=== PATIENT | female | born 1960 | race Caucasian/White ===

== ENCOUNTER 2018-08-11 18:00 | Emergency (ER) | payer BC, SELFPAY ==
[2018-08-11 18:06] VITALS: BP 138/78; PULSE 59; RESP 16; TEMP 36.5; O2SAT 99
--- NOTE | 2018-08-11 18:27 | DI.CT_ITS ---
SYMPTOM/DIAGNOSIS: RUQ ABD PAIN CT ABDOMEN AND PELVIS: The study was conducted according to the usual protocol with intravenous administration of 100 cc IsoVue 350. The lung bases ar unremarkable. The liver contains a benign appearing right hepatic cyst. There is no ductal dilatation and no hepatic masses seen. Significant distention of the gallbladder is demonstrated. There is a vague 22 mm density within the gallbladder rumen which may reflect a stone or sludge ball. Additional densities likely present within the gallbladder lumen are noted as well. There is no evidence of pericholecystic fluid. The common bile duct caliber is 6-7 mm. There is ill defined density in the region of the distal common duct and/or ampulla. There is mild pancreatic ductal dilatation. The spleen is unremarkable. The adrenals are unremarkable. The kidneys are unremarkable. Note is made of descending and sigmoid diverticulosis. No focal pathology is identified. There is no pathology in the small bowel. There is no evidence of obstruction or mucosal thickening. There are no findings to suggest an acute appendix. The bladder is unremarkable. The reproductive organs as visualized are unremarkable. There is no evidence of free air or free fluid in the intraperitoneal space. No acute bony abnormality is seen. The soft tissues are unremarkable. There is no aortic aneurysm. There is no lymphadenopathy. SUMMARY: Significant distention of the gallbladder and biliary tree as described above. Ill defined density in the region of the common duct and/or ampulla is demonstrated. A distal stone or ampullary mass could be considered. Further evaluation with ultrasound and if needed an MRCP could be obtained.
[2018-08-11 19:01] LABS: Bilirubin Negative (Negative); Blood Negative (Negative); Clarity Clear; Glucose Negative (Negative); Ketones Negative (Negative); Leukocyte Esterase Trace (Negative); Nitrite Negative (Negative); Specific Gravity 1.015 (1.005-1.025); Urobilinogen 0.2 EU/dL (Up TO 0.2)
[2018-08-11] MEDS: Ketorolac 30 MG/ML VIAL IVP (19:08)
[2018-08-11] MEDS: Normal Saline 1,000 ML 1000 ML IV (19:08)
[2018-08-11 19:10] LABS: Abs Immature Grans 0.01 k/cumm (0.0-0.09); Absolute Basophil Count 0.03 k/cumm (0.0-0.2); Absolute Eosinophil Count 0.17 k/cumm (0.0-0.7); Absolute Lymphocyte Count 1.65 k/cumm (1.2-3.4); Absolute Monocyte Count 0.39 k/cumm (0.11-0.7); Absolute Neutrophil Count 4.03 k/cumm (1.2-6.7); Basophils % 0.5; Eosinophils % 2.7; HCT 42.6 % (36.0-46.0); HGB 14.9 g/dL (12.0-15.5); Immature Grans % 0.2; Lymphocytes % 26.3; Mean Corpuscular Hemoglobin 32.3 pg (27.0-33.0); Mean Corpuscular Volume 92.2 fL (80-95); Mean Platelet Volume 8.6 fL (8.0-11.0); Monocytes % 6.2; Neutrophils % 64.1; Platelet Count 268 x1000/uL (130-400); RBC 4.62 m/cumm (4.00-5.20); RBC Distribution Width 12.2 % (11.7-14.6); White Blood Cell Count 6.28 k/cumm (4.4-10.8)
--- NOTE | 2018-08-11 19:12 | ED.GENADUL_ITS ---
Discharge Plan Disposition Patient Disposition: HOME Condition: Stable Discharge Details Chief Complaint: Abd Prob Clinical Impression: Acute cholecystitis Primary Care Provider: Donna Farrell ED Provider: Afshin Ochoa Home Meds and New Rx's Prescriptions: No Action citalopram 20 mg Tablet 20 mg PO DAILY RF: 0 Discharge Instructions Instructions: Cholecystitis (ED) Additional Instructions: Return immediately to the emergency department for any new or worsening symptoms. These may include severe persistent uncontrollable pain, vomiting, fever. Otherwise radiology will contact you tomorrow morning for scheduling of your outpatient ultrasound and you should call Dr. Gil's office at 8 AM for arrangement of follow-up visit with him Referrals: Cameron Piña DO [ [facility] STAFF PHYSICIAN] - (Call the office first thing tomorrow morning for arrangement of follow-up with) Medical Decision Making Patient presenting to the emergency department for chief complaint of abdominal pain. Patient states that she has had upper quadrant abdominal pain since 3 AM this morning that has gotten progressively worse. Patient states that it feels crampy and sharp in nature. Patient denies any injury or trauma, nausea vomiting diarrhea, fever, chest pain or difficulty breathing. Physical exam shows right upper quadrant tenderness and positive Cifuentes sign but some left upper quadrant tenderness is also noted. Differential diagnosis to include chief differential diagnosis could include cholecystitis versus diverticulitis so I do feel that labs and CT imaging is warranted. Less likely diagnosis include pancreatitis given patient's alcohol intake, atypical ND, renal calculi. Still plan to check lipase and troponin and CT image for renal calculi. Patient given IV fluids and ketorolac pending results. Pending results patient was reassessed and still had significant amount of pain so patient was ordered morphine. Review of labs shows no leukocytosis, normal LFTs, normal lipase normal troponin and otherwise nondiagnostic nonreversing labs. Patient reassessed and still had moderate level of pain but does not want any further pain medication due to concern about opiate use. Review of CT scan shows a moderately distended gallbladder with a 22 mm area concerning for a possible stone versus sludge. I feel that this clinically correlates with acute cholecystitis with stable labs. Patient reassessed and still has significant amount of pain and states very little relief from the previous medications. Patient was ordered hydromorphone and due to difficult to control patient's pain I do feel that patient requires admission. I did attempt to admit her to our facility which was full and had no bed availability. I also called [facility], [facility], and [facility] which none of those facilities had bed availability. Patient did not want to travel any further than these facilities for care and so she wondered if it was possible for her to come home and return. I informed her that I would consult with Dr. Gil and review her case with him before making this decision. Spoke with Dr. Gil who requested an outpatient ultrasound to be done preferably first thing tomorrow morning and for her to follow-up with her in his office tomorrow morning otherwise to provide patient with sufficient pain control to get her to her appointment tomorrow and inform patient to return immediately for any new or worsening symptoms. After discussion of diagnosis and plan of care patient states no further needs, questions, or concerns and states clear understanding to return to the emergency department for any worsening symptoms. Patient was given 4 tablets of [place] 5/325 and 4 tablets of Phenergan 25 mg. HPI General Mode of arrival: ambulatory . Date/Time Provider Initiated Documentation: 08/11/18 18:15 . Limitations to Documentation: no limitations . Information obtained by: patient and RN notes reviewed . History of Present Illness 58 year old F presents to the emergency department with the chief complaint of Abd pain, described as moderate, with intensity rated at 5. Quality is described as sharp, and is localized to the abdomen. Patient reports radiation to back. Patient started experiencing this hour(s) (16) and it has been constant. No relieving factors improve symptom(s), No exacerbating factors reported . Patient notes no other symptoms.. Patient did receive the following treatments prior to arrival, none Related Data Home Medications Medication Instructions Recorded Confirmed citalopram 20 mg PO DAILY 08/11/18 08/11/18 Allergies Allergy/AdvReac Type Severity Reaction Status Date / Time No Known Allergies Allergy Unverified 08/11/18 18:11 General Stated Complaint: Abd Prob ROCKY: 3 Review of Systems Constitutional Denies fatigue, Denies fever(s), Denies malaise and Denies poor appetite Cardiovascular Denies chest pain, Denies syncope, Denies irregular heart rhythm and Denies dyspnea Respiratory Denies cough and Denies dyspnea Gastrointestinal Reports as per HPI, Reports abdominal pain, Reports bloating, Denies change in stool character, Denies constipation, Denies diarrhea, Denies loose stools, Denies nausea and Denies vomiting Genitourinary Denies hematuria and Denies dysuria Neurologic Denies syncope Endocrine Denies fatigue [facility] Social History Smoking/Tobacco Use Status: Former Tobacco Use Exam Const General: cooperative, no acute distress and not ill appearing Orientation: alert, awake and oriented x3 HENMT Mouth: mucous membranes dry (Dry) Resp Effort & Inspection: normal respiratory effort, able to speak in complete sentences and no respiratory distress Auscultation: clear to auscultation bilaterally Cardio Rate: regular rate Rhythm: regular rhythm Heart Sounds: S1 normal, no click, no gallops, no murmurs and no rubs GI Inspection: normal to inspection Palpation: no hepatosplenomegaly, guarding in the RUQ and tender in the RUQ and Cifuentes's sign positive; not at McBurney's point, with no rebound tenderness and Rovsing's sign negative Back/Spine/Pelvis Back: no CVA tenderness Skin General skin exam: no rashes or lesions noted Neuro General: alert, awake, oriented x3, moves all extremities and no focal motor deficits Sensory Exam: no sensory deficits noted Course Vital Signs Temperature 36.5 C 08/11/18 18:06 Pulse 59 L 08/11/18 18:06 Respiratory Rate 16 08/11/18 18:06 Blood Pressure 138/78 08/11/18 18:06 Pulse Oximetry 99 08/11/18 18:06 Temperature 36.5 C 08/11/18 18:06 Temperature Source Temporal Artery Scan 08/11/18 18:06 Pulse 59 L 08/11/18 18:06 Respiratory Rate 16 08/11/18 18:06 Respiratory Effort 08/11/18 18:12 Blood Pressure 138/78 08/11/18 18:06 Blood Pressure Position Supine 08/11/18 18:06 Pulse Oximetry 99 08/11/18 18:06 Pain Level 5 08/11/18 18:06 Lab/Test Results Lab/Test Results: Laboratory Tests Range/Units 08/11/18 18:45 Urine Color (Yellow) Yellow Urine Clarity Clear Urine pH (5-8) 7.0 Ur Specific [place] (1.005-1.025) 1.015 Urine Protein (Negative) mg/dL Negative Urine Ketones (Negative) mg/dL Negative Urine Blood (Negative) Negative Urine Nitrite (Negative) Negative Urine Bilirubin (Negative) Negative Urine Urobilinogen (Up TO 0.2) EU/dL 0.2 Ur Leukocyte Esterase (Negative) Trace H Urine Glucose (Negative) mg/dL Negative
[2018-08-11 19:16] LABS: Epithelial Cells Rare HPF (Negative); RBC Negative (0-2); WBC 0-2 HPF (0-5)
[2018-08-11 19:17] LABS: Bacteria Rare HPF (Negative)
[2018-08-11 19:18] LABS: Crystals Few Amorphous HPF (Negative)
[2018-08-11 19:19] LABS: C & S Indicated? No; Casts Negative LPF (Negative); Mucus Negative (Negative); Other Cells Rare Renal (Negative)
[2018-08-11 19:32] LABS: ALT 31 U/L (12-78); AST 19 U/L (15-37); Albumin 4.3 g/dL (3.4-5.0); Alkaline Phosphatase 105 U/L (46-116); Anion Gap 7.2 mmol/L (3-11); BUN 15 mg/dL (7-18); Bilirubin, Total 0.4 mg/dL (0.2-1.0); CO2 30.8 mmol/L (21.0-32.0); CREATININE 0.81 mg/dL (0.55-1.02); Calcium 9.8 mg/dL (8.5-10.1); Chloride 104 mmol/L (98-107); Glucose 111 mg/dL (70-100); Lipase 172 U/L (73-393); Potassium 4.1 mmol/L (3.5-5.1); Sodium 142 mmol/L (136-145); Total Protein 7.6 g/dL (6.4-8.2)
[2018-08-11 19:36] LABS: Troponin I < 0.02 ng/mL (0.00-0.06)
[2018-08-11] MEDS: MORPHine 10 MG/ML VIAL 4 MG IVP (20:20)
[2018-08-11] MEDS: Omnipaque 350 MG/ML 50 ML BTL PO (20:23)
[2018-08-11] MEDS: Omnipaque 350 MG/ML 100 ML BTL IV (20:26)
--- NOTE | 2018-08-11 21:44 | DI.VRAD_ITS ---
EXAM: CT Abdomen and Pelvis With Intravenous Contrast CLINICAL HISTORY: 58 years old, female; Signs and symptoms; Other: Ruq abd pain; Additional info: Pain on upper abd since 3 am ruq the most per pt TECHNIQUE: Axial computed tomography images of the abdomen and pelvis with intravenous contrast. All CT scans at this facility use at least one of these dose optimization techniques: automated exposure control; mA and/or kV adjustment per patient size (includes targeted exams where dose is matched to clinical indication); or iterative reconstruction. Coronal and sagittal reformatted images were created and reviewed. CONTRAST: 100 mL of omnipaque 350 administered intravenously. COMPARISON: No relevant prior studies available. FINDINGS: Lung bases: No focal pathology. No mass. No consolidation. ABDOMEN: Liver: No hepatic masses. Benign-appearing right hepatic cyst. Intrahepatic ductal dilation, mild. Gallbladder and bile ducts: Significant distention of the gallbladder. Vague 22 mm density within the gallbladder lumen may reflect a stone or sludge ball. Additional densities likely present within the gallbladder lumen. No significant pericholecystic edema. The common bile duct is dilated to 6-7 mm there is ill-defined density in the region of the distal common bile duct and/or ampulla. Pancreas: Mild pancreatic ductal dilation. Spleen: No focal pathology. No splenomegaly. Adrenals: No focal pathology. No mass. Kidneys and ureters: No focal pathology. No solid mass. No hydronephrosis. Stomach and bowel: Descending and sigmoid diverticulosis. No focal pathology in the remainder of the colon. No focal pathology in the small bowel. No obstruction. No mucosal thickening. PELVIS: Appendix: No findings to suggest acute appendicitis. Bladder: No focal pathology. No mass. Reproductive: Unremarkable as visualized. ABDOMEN and PELVIS: Intraperitoneal space: No free air. No significant fluid collection. Bones/joints: No acute fracture. No dislocation. Soft tissues: Unremarkable. Vasculature: No focal pathology. No abdominal aortic aneurysm. Lymph nodes: No enlarged lymph nodes. IMPRESSION: 1. Significant distention of the gallbladder and biliary tree as described. Ill-defined density in the region of the distal common bile duct and/or ampulla. A distal stone or ampullary mass must be considered. Consider further investigation with MRCP or ultrasound. 2. Incidental findings as described. Dictated and Authenticated by: Angelika Koo MD. Ordering:MARIN MERRITT MD
[2018-08-11] MEDS: Normal Saline 1,000 ML 200 ML IV (21:50)
[2018-08-11] MEDS: HYDROmorphone 2 MG/ML VIAL 0.5 MG IVP (21:54)
[2018-08-11] MEDS: HYDROcodone 5/Acetaminophen 325 TAB PO (23:51)
[2018-08-11] MEDS: Promethazine 25 MG TAB 100 MG PO (23:52)
[2018-08-11 23:55] VITALS: BP 121/77; PULSE 66; RESP 16; TEMP 36.6; O2SAT 97
== END 2018-08-11 23:55 | disposition home or self-care (01) ==
PROVIDERS: Emergency Provider Nurse Practitioner Family; PCP Family Medicine
DX: K81.0 Acute cholecystitis (principal)
CPT/HCPCS: 80053; 83690; 93005; 96361; 96374; 96375; 99285; 74177; 81003; 81015; 84484; 85025; 93010; 99284; J1885; J2270; J3490; Q9967

== ENCOUNTER 2018-08-12 12:08 | Outpatient (CLI) | payer BC, SELFPAY ==
--- NOTE | 2018-08-12 08:21 | DI.US_ITS ---
SYMPTOM/DIAGNOSIS: RUQ PAIN ABDOMINAL ULTRASOUND: The aorta and vena cava are intact. A 9 mm cyst is noted in the right hepatic lobe adjacent to the right kidney. There is a 2.1 cm stone in the gallbladder neck and a 2.7 cm stone is noted in the body of the gallbladder. The gallbladder is distended measuring up to 10 to 11 cm in length. The gallbladder wall thickness is 2.6 mm. The pancreas is intact with note made of mild dilatation of the main pancreatic duct. The spleen is unremarkable. The kidneys are unremarkable. There is no evidence of abdominal free fluid. SUMMARY: There is evidence of gallbladder distention and gallstones one of which measures up to 2.1 cm in diameter and appears to be impacted in the region of the gallbladder neck. Also the common duct caliber is 7-8 mm which is mildly dilated. No common duct stone is seen.
== END 2018-08-12 12:28 ==
PROVIDERS: PCP Family Medicine; Visit Provider Nurse Practitioner Family
DX: R10.11 Right upper quadrant pain (principal); K80.20 Calculus of gallbladder without cholecystitis without obstruction; K82.8 Other specified diseases of gallbladder; K76.89 Other specified diseases of liver
CPT/HCPCS: 76700

== ENCOUNTER 2018-08-13 17:07 | Observation (INO) | payer BC, SELFPAY ==
[2018-08-13] VITALS (18 sets, daily range): BP systolic 93–131; BP diastolic 55–76; PULSE 57–77; RESP 13–19; TEMP 35.2–37.9; O2SAT 93–99
--- NOTE | 2018-08-13 07:03 | W.PM.DSUDISC ---
Discharge Plan Disposition Patient Disposition: HOME Condition: Fair Discharge Details Reason For Visit: BILIARY COLIC, chronic cholecystitis Attending Provider: Debbie Alvarenga Primary Care Provider: Donna Farrell Home Meds and New Rx's Prescriptions: No Action hydrocodone-acetaminophen [[place]] 5-325 mg tablet 1 tab PO Q4H PRN (Reason: pain) Qty: 15 RF: 0 citalopram 20 mg Tablet 20 mg PO HS RF: 0 calcium carb and citrate-vitD3 [Citracal + D Slow Release] 600 mg calcium- 500 unit Tablet Extended Release 1 tab PO DAILY RF: 0 ibuprofen 200 mg Tablet 400 mg PO QID PRNRF: 0 Discharge Instructions Instructions: Laparoscopic Cholecystectomy (DC) Additional Instructions: General Surgery Discharge Information Discharge Activities: 1. Ambulate at least 3 times a day for 15 minutes and as tolerated 2. Out of bed at least 3 times a day for 2 hours at a time, and as tolerated 3. You can shower, pat wounds dry, do not rub Restrictions: 1. No heavy lifting over 20 pounds for 2 weeks, no strenuous bending or twisting. 2. No swimming, baths, or immersion of wounds in water for 1 week. Follow-up appointments: Dr. Alvarenga in 2 weeks on 09/01/18 at 1 pm. His office is located in the upper level of the [facility] across the street from the [facility] [address]. The office number is [phone]. For any questions or to make, confirm appointments. If you are having fever, chills, nausea, vomiting, pain not controlled with pain medications, bleeding or drainage from your wounds. Call [phone] or [phone] (after hours) 1. Because there will be medication in your system for the next 24 hours, you may feel a little sleepy. Your coordination will be affected. Therefore: a. Do not drive or operate dangerous equipment for 24 hours. b. Do not drink alcohol beverages for 24 hours (not even beer). c. Plan to go home and rest for the day. 2. Generally the only restriction on your activity is no lifting, pulling or pushing more then 20 lb for 4 weeks. You may feel fatigued for 2-4 weeks. 3 After you arrive home you may have a light meal and return to a normal diet as you can tolerate it without feeling sick to your stomach. 4. After surgery, you may feel pain or discomfort. Take the medications as prescribed. 5. If there are any questions regarding the findings of your procedure, please feel free to contact your doctor. 6. If you are unable to contact your doctor with a problem, contact the hospital at [phone]. 7. Continue all your regular medications unless directed otherwise. 8. If you are being prescribed a Narcotic pain medication. Narcotic pain medications have an addiction potential for everyone. It is important that you take the medication as prescribed There is a limit on how many tablets we can prescribed, this has been decided by the state Please keep the medications in a secure place and do not let anyone know you have them at home If you have medication left over please discard them by crushing them in a little water and mixing in used coffee grounds or cat litter and putting in the trash. I understand the above instructions and have no questions. Signature of Patient or Responsible Adult Escort Date/Time Name of Responsible Adult Escort Signature of Nurse Date/Time Stand Alone Forms: Kayleigh Pepper (DSU) Print Language: Stateless Activity:: no lifting, pulling,or or pushing >20 lb x 2 weeks Diet:: low fat Discharge Orders Discharge Orders: Discharge Order (Routine); Ordered 08/13/18 Ordered By: Debbie Alvarenga
--- NOTE | 2018-08-13 07:07 | PDOC.DSDIS_ITS ---
Discharge Plan Disposition Patient Disposition: HOME Condition: Fair Discharge Details Reason For Visit: BILIARY COLIC, chronic cholecystitis Attending Provider: Debbie Alvarenga Primary Care Provider: Donna Farrell Home Meds and New Rx's Prescriptions: No Action hydrocodone-acetaminophen [[place]] 5-325 mg tablet 1 tab PO Q4H PRN (Reason: pain) Qty: 15 RF: 0 citalopram 20 mg Tablet 20 mg PO HS RF: 0 calcium carb and citrate-vitD3 [Citracal + D Slow Release] 600 mg calcium- 500 unit Tablet Extended Release 1 tab PO DAILY RF: 0 ibuprofen 200 mg Tablet 400 mg PO QID PRNRF: 0 Discharge Instructions Instructions: Laparoscopic Cholecystectomy (DC) Additional Instructions: General Surgery Discharge Information Discharge Activities: 1. Ambulate at least 3 times a day for 15 minutes and as tolerated 2. Out of bed at least 3 times a day for 2 hours at a time, and as tolerated 3. You can shower, pat wounds dry, do not rub Restrictions: 1. No heavy lifting over 20 pounds for 2 weeks, no strenuous bending or twisting. 2. No swimming, baths, or immersion of wounds in water for 1 week. Follow-up appointments: Dr. Alvarenga in 2 weeks on 09/01/18 at 1 pm. His office is located in the upper level of the [facility] across the street from the [facility]. The office number is [phone]. For any questions or to make, confirm appointments. If you are having fever, chills, nausea, vomiting, pain not controlled with pain medications, bleeding or drainage from your wounds. Call [phone] or [phone] (after hours) 1. Because there will be medication in your system for the next 24 hours, you may feel a little sleepy. Your coordination will be affected. Therefore: a. Do not drive or operate dangerous equipment for 24 hours. b. Do not drink alcohol beverages for 24 hours (not even beer). c. Plan to go home and rest for the day. 2. Generally the only restriction on your activity is no lifting, pulling or pushing more then 20 lb for 4 weeks. You may feel fatigued for 2-4 weeks. 3 After you arrive home you may have a light meal and return to a normal diet as you can tolerate it without feeling sick to your stomach. 4. After surgery, you may feel pain or discomfort. Take the medications as prescribed. 5. If there are any questions regarding the findings of your procedure, please feel free to contact your doctor. 6. If you are unable to contact your doctor with a problem, contact the hospital at [phone]. 7. Continue all your regular medications unless directed otherwise. 8. If you are being prescribed a Narcotic pain medication. Narcotic pain medications have an addiction potential for everyone. It is important that you take the medication as prescribed There is a limit on how many tablets we can prescribed, this has been decided by the state Please keep the medications in a secure place and do not let anyone know you have them at home If you have medication left over please discard them by crushing them in a little water and mixing in used coffee grounds or cat litter and putting in the trash. I understand the above instructions and have no questions. Signature of Patient or Responsible Adult Escort Date/Time Name of Responsible Adult Escort Signature of Nurse Date/Time Stand Alone Forms: Kayleigh Pepper (DSU) Print Language: Canadian Activity:: no lifting, pulling,or or pushing >20 lb x 2 weeks Diet:: low fat Discharge Orders Discharge Orders: Discharge Order (Routine); Ordered 08/13/18 Ordered By: Debbie Alvarenga
[2018-08-13] MEDS: Lactated Ringers 1,000 ML 30 ML IV ×3 (08:42→15:01)
[2018-08-13] MEDS: Lidocaine 1% Pres-Free 5 ML VIAL 20 ML (10:40)
--- NOTE | 2018-08-13 11:50 | GB_PTH ---
PATIENT: Elvia Rodriguez LOC: U#:[id number] AGE/SX: 58/F ROOM: [id number] RE08/13/[address]: Debbie Alvarenga MD : 1960 BED: A DIS: 08/14/2018 SPEC #: [id number] RECD: 08/13/18 13:08 STATUS: SHMUEL REQ #: [id number] MARC: 08/13/18 11:[address]: Debbie Alvarenga DEPT: Surgical Specimen RECD BY: Janet Camarena ENTERED: 08/13/18 13:09 SP TYPE: GB OTHR DR: Donna Farrell Tissues: 1 - GALLBLADDER Procedures: GROSS AND MICRO LEVEL 3 Comments: [id number]
[2018-08-13] MEDS: fentaNYL 100 MCG/2 ML VIAL IVP ×2 (13:04→13:11)
[2018-08-13] MEDS: HYDROmorphone 2 MG/ML VIAL IVP (13:22)
[2018-08-13] MEDS: Normal Saline Flush 10 ML SYR IVP ×2 (15:05→16:41)
[2018-08-13] MEDS: HYDROcodone 5/Acetaminophen 325 TAB PO (15:15)
--- NOTE | 2018-08-13 16:01 | NUR.NOTE ---
Nursing Note: 08/13/18@1415-Admited from PACU to room 205 via stretcher. A&Ox3. LS cl Enc to take deep breaths and cough. BS hypo. Skin is pale w 4 trochars on ABD which are glued w bruising noted. All trochars are [employer]. ABD is soft and sl tender w turning. Denies nausea. Patient has not voided postop. PP+ no edema noted. SCD's intact to LE. Bed alarm placed on. IV LR in site WNL's. See intervention. Sipping on gingerale. States a tiny bit of 1/10 pain. Enc to ring if needs pain meds. Bed alarm placed on for safety. Upper bed rails in use. Oriented to room and call doyle derrick. Spouse present and attentive. MD Alvarenga in to see patient at this time. See VS intervention.
[2018-08-13] MEDS: Pantoprazole 40 MG VIAL IVP (16:39)
--- NOTE | 2018-08-13 19:37 | ROE_ITS ---
DATE OF PROCEDURE: August 13, 2018 PREOPERATIVE DIAGNOSIS: Biliary colic. POSTOPERATIVE DIAGNOSIS: #1. Biliary colic. #2. Chronic cholecystitis. PROCEDURE: Laparoscopic cholecystectomy. SURGEON: Debbie Alvarenga M.D. TRAFFIC OBSERVER: Irlanda Grover PA-C ANESTHESIA: General endotracheal anesthesia. HEALTH AND HUMAN PERFORMANCE PROFESSOR: Robert Maravilla, and Ashish Neumann CRNA BLOOD LOSS: <50 cc SPECIMENS: Gallbladder and contents. Sponge, needle, and instrument counts correct at the end of the case. COMPLICATIONS: No immediate complications. INDICATIONS: Ms. Domingo is a 58-year-old female who has had one-and-off right upper quadra nt pain for eight years. She had a pretty significant episode a couple of days ago and was seen in t office by Dr. Piña. The risks, benefits, and complications of the procedure were reviewed with her in the office and then again by myself in Same Day Surgery. The patient wished to proceed and no guarantees were given or implied. FINDINGS: Two large stones within a very dilated gallbladder. There was a thickened wall and white bile. Also noted were adhesions between the liver and the abdominal wall and omentum and the abdomin al wall. PROCEDURE: After informed consent was obtained, the patient was taken to the Operating Room and plac ed in a supine position. SCDs and monitors were applied. The patient was placed under general anest hesia and intubated. A Liriano catheter was then placed in a standard sterile fashion and a time-out w as done. The patient's name, date of , procedure type, allergies to medications, DVT prophylaxi s, and antibiotic prophylaxis were all reviewed. The abdomen was then prepped and draped in a steril e surgical fashion. Next, 1% lidocaine mixed with 0.5% Marcaine was injected just above the umbilicu s. A small 5-mm incision was made. The skin was grasped with towel clamps and pulled up while, at t he same time, placing a 5-mm Visiport under direct visualization into the abdomen. The abdomen was t hen insufflated. The camera was placed and right away a large amount of adhesions were noted between the omentum and the abdominal wall, not only in the pelvis but also in the right upper quadrant and left upper quadrant. The left lobe of the liver was noted to be completely adhered to the abdominal wall. I could see the spleen very clearly. Using the camera, some of the scutcher tender adhesions were swept, allowing me to place another 5-mm port ju st to the right of the umbilicus. Using a harmonic scalpel, the adhesions were gently dissected away from the abdominal wall until I was able to see the liver. Another 5-mm port was then placed in the right upper quadrant and a 12-mm port was placed in a subxiphoid area, all under direct visualizatio n. The gallbladder was then identified which was thickened and dilated. I could not grasp it so using a laparoscopic needle white bile was suctioned out of the gallbladder until it collapsed. The gallbla dder was then grasped and pulled towards the right. A 5-mm tenaculum was then used to grasp the ston e and gallbladder in order to pull this towards the right, allowing me to visualize the lymph node of [place]. The stomach and duodenum were gently swept away from the gallbladder, breaking some fine adh esions. Dissection with a [place] was then done right at the neck of the gallbladder around the cys tic duct and three clips were placed, one proximal and two distal, just distal to the neck of the gal lbladder, and the duct was severed. The cystic artery was then identified running just next to the l ymph node and once dissected 360 degrees, three clips were placed, one proximal and two distal, and t he area was cut. Gently the rest of the adhesions were taken down, first using the harmonic scalpel, and then the hook and cautery were used to remove the gallbladder from the liver bed. There was a w all of inflammation between the gallbladder and the liver. Once the gallbladder was removed from the liver bed, it was placed into a laparoscopic bag and pulled up through the 12-mm incision which did have to be made larger with an 11 blade. Once the gallbladder was out, the 12-mm port was placed back in and the skin was grasped with a towel clip to allow for re-insufflation of the abdomen. The liver bed was inspected and the area was irri gated. Blood from the dissection of the adhesions was suctioned out until the effluent was clear whi ch took about a liter and a half of saline. No bleeding was noted from the liver bed. No bleeding w as noted from the artery. No bile leak was identified. At this point, there was bleeding coming rick n from the fascia where the 12-mm port was going through so the port was removed and the fascia was c losed with a #0 Vicryl. This stopped the bleeding from the fascia itself. Some more irrigation was used to make sure that there was not any other bleeding and none was found. Again, at the end of the suction, the effluent was clear. The right upper quadrant port and the umbilical port were then rem wil under direct visualization and no bleeding was noted from the fascia. Lastly, the camera and th e last 5-mm port were removed and the abdomen was deflated. The skin was cleaned and dried and the incisions were closed with #4-0 Vicryl. Skin Affix was then a pplied to all four incisions. The patient's Liriano catheter was removed. She was then woken up, extu bated, and taken back to Recovery in stable condition. Due to the difficulty of the case with all of the adhesions and some more pain than I expected after she woke up, I elected to admit the patient for observation, just to make that she would be okay, was able to tolerate liquids, and that we could get her pain under control.
[2018-08-13] MEDS: Docusate Sodium 100 MG CAP PO (21:05)
[2018-08-13] MEDS: Ibuprofen 200 MG TAB 400 MG PO (21:06)
[2018-08-13] MEDS: Citalopram 20 MG TAB PO (21:06)
[2018-08-13] MEDS: Acetaminophen 325 MG TAB PO (22:30)
[2018-08-14 04:05] VITALS: BP 115/66; PULSE 66; RESP 18; TEMP 37.6; O2SAT 95
[2018-08-14 04:14] VITALS: TEMP 37.6
[2018-08-14] MEDS: Acetaminophen 325 MG TAB PO (04:14)
[2018-08-14 07:09] LABS: Abs Immature Grans 0.01 k/cumm (0.0-0.09); Absolute Basophil Count 0.01 k/cumm (0.0-0.2); Absolute Eosinophil Count 0.05 k/cumm (0.0-0.7); Absolute Lymphocyte Count 1.63 k/cumm (1.2-3.4); Absolute Neutrophil Count 3.66 k/cumm (1.2-6.7); Basophils % 0.2; Eosinophils % 0.8; HCT 35.5 % (36.0-46.0); HGB 12.2 g/dL (12.0-15.5); Immature Grans % 0.2; Lymphocytes % 27.3; Mean Corp. HGB Concentration 34.4 g/dL (32.0-36.0); Mean Corpuscular Hemoglobin 32.3 pg (27.0-33.0); Mean Corpuscular Volume 93.9 fL (80-95); Mean Platelet Volume 8.9 fL (8.0-11.0); Monocytes % 10.1; Neutrophils % 61.4; Platelet Count 219 x1000/uL (130-400); RBC 3.78 m/cumm (4.00-5.20); RBC Distribution Width 12.2 % (11.7-14.6); White Blood Cell Count 5.96 k/cumm (4.4-10.8)
[2018-08-14 07:18] LABS: Anion Gap 5.3 mmol/L (3-11); BUN 9 mg/dL (7-18); CO2 28.7 mmol/L (21.0-32.0); CREATININE 0.86 mg/dL (0.55-1.02); Calcium 8.2 mg/dL (8.5-10.1); Chloride 107 mmol/L (98-107); Glucose 106 mg/dL (70-100); Potassium 3.3 mmol/L (3.5-5.1); Sodium 141 mmol/L (136-145)
[2018-08-14 07:20] VITALS: O2SAT 96
[2018-08-14 07:25] VITALS: BP 111/71; PULSE 58; RESP 16; TEMP 37.4; O2SAT 96
[2018-08-14] MEDS: Docusate Sodium 100 MG CAP PO (07:42)
--- NOTE | 2018-08-14 08:34 | PDOC.CMIN ---
Care Management Initial Assess REASON FOR HOSPITALIZATION:: Biliary Colic, chronic cholecystitis, Laparoscopic cholecystectomy PAST MEDICAL HISTORY/PAST SURGICAL HISTORY:: Laparoscopic cholescystectomy: 08/13/18, Depression with anxiety, osteopenia after menopause, H/O colonoscopy, delivery, former tobacco use PREVIOUS FUNCTIONAL STATUS/SOCIAL/FAMILY SUPPORTS:: Elvia resides in [place], [place] with her and teenage daughter. Elvia is not currently working, as the family relocated two years ago and she has not yet returned to the workforce. She transports her daughter to and from [facility] everyday. Her is a Agency Cashier who commutes to [place] for work. 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 She shared that she spent her honeymoon at [facility] in [place] and her and her fell in love with the area and had always wanted to move to [place]. CURRENT FUNCTIONAL STATUS:: Elvia is lying in bed when meets with her, she anticipates returning home today and reports feeling ready. Elvia is pleasant in interaction and forthcoming with information. ADVANCE DIRECTIVES:: None on file. Has patient been provided with information about the portal?: Yes Did the patient sign up for the portal?: No CODE STATUS:: Full Code INSURANCE COVERAGE / FINANCIAL ISSUES:: BC/BS Other CURRENT HOME/COMMUNITY SERVICES/EQUIPMENT:: Review discharge instructions, discuss Ask Me Three. PRIMARY CARE PHYSICIAN:: Donna Farrell POTENTIAL DISCHARGE NEEDS:: Follow up appointment with PCP. PATIENT/FAMILY EDUCATION NEEDS:: Review discharge instructions, discuss Ask Me Three. ANTICIPATED BARRIERS TO DISCHARGE:: None identifed. TRANSPORTATION:: Via private vehicle with her . PLAN:: Elvia will return home when ready per MD. She will follow up with her PCP and plan of care as prescribed. She will transport via private vehicle with her .
--- NOTE | 2018-08-14 09:37 | DSE_ITS ---
Date of service: 08/14/18 Time of Service: 09:35 DS: Diagnosis Discharge Diagnosis (1) Biliary colic: Status: Acute (2) Chronic cholecystitis: Status: Chronic Discharge Plan Disposition Patient Disposition: HOME Condition: Good Discharge Details Reason For Visit: BILIARY COLIC, chronic cholecystitis Admit Date/Time: 08/13/18 17:36 Admit Provider: Debbie Alvarenga Attending Provider: Debbie Alvarenga Primary Care Provider: Donna Farrell [facility] Course Hospital Course: Mrs. Agee had laproscopic cholecystectomy on 08/13/18, the procedure was difficult case secondary to adhesions and following the procedure the patient had more pain then expected. She was admitted to Med-Surg for observation due to increased pain levels and to confirm that she could tolerate a clear liquid diet. The patient tolerated clear liquids well and pain was managed over night with use of Tylenol and ambulation. Home Meds and New Rx's Prescriptions: Continue hydrocodone-acetaminophen [[place]] 5-325 mg tablet 1 tab PO Q4H PRN (Reason: pain) Qty: 15 RF: 0 citalopram 20 mg Tablet 20 mg PO HS RF: 0 calcium carb and citrate-vitD3 [Citracal + D Slow Release] 600 mg calcium- 500 unit Tablet Extended Release 1 tab PO DAILY RF: 0 ibuprofen 200 mg Tablet 400 mg PO QID PRNRF: 0 Discharge Instructions Instructions: Laparoscopic Cholecystectomy (DC) Additional Instructions: General Surgery Discharge Information Discharge Activities: 1. Ambulate at least 3 times a day for 15 minutes and as tolerated 2. Out of bed at least 3 times a day for 2 hours at a time, and as tolerated 3. You can shower, pat wounds dry, do not rub Restrictions: 1. No heavy lifting over 20 pounds for 2 weeks, no strenuous bending or twisting. 2. No swimming, baths, or immersion of wounds in water for 1 week. Follow-up appointments: Dr. Alvarenga in 2 weeks on 09/01/18 at 1 pm. His office is located in the upper level of the [employer] Building across the street from the [facility]. The office number is [phone]. For any questions or to make, confirm appointments. If you are having fever, chills, nausea, vomiting, pain not controlled with pain medications, bleeding or drainage from your wounds. Call [phone] or [phone] (after hours) 1. Because there will be medication in your system for the next 24 hours, you may feel a little sleepy. Your coordination will be affected. Therefore: a. Do not drive or operate dangerous equipment for 24 hours. b. Do not drink alcohol beverages for 24 hours (not even beer). c. Plan to go home and rest for the day. 2. Generally the only restriction on your activity is no lifting, pulling or pushing more then 20 lb for 4 weeks. You may feel fatigued for 2-4 weeks. 3 After you arrive home you may have a light meal and return to a normal diet as you can tolerate it without feeling sick to your stomach. 4. After surgery, you may feel pain or discomfort. Take the medications as prescribed. 5. If there are any questions regarding the findings of your procedure, please feel free to contact your doctor. 6. If you are unable to contact your doctor with a problem, contact the hospital at [phone]. 7. Continue all your regular medications unless directed otherwise. 8. If you are being prescribed a Narcotic pain medication. Narcotic pain medications have an addiction potential for everyone. It is important that you take the medication as prescribed There is a limit on how many tablets we can prescribed, this has been decided by the state Please keep the medications in a secure place and do not let anyone know you have them at home If you have medication left over please discard them by crushing them in a little water and mixing in used coffee grounds or cat litter and putting in the trash. I understand the above instructions and have no questions. Signature of Patient or Responsible Adult Escort Date/Time Name of Responsible Adult Escort Signature of Nurse Date/Time Stand Alone Forms: Kayleigh Pepper (DAMIÁNU) Print Language: [place] Activity:: Activity as Tolerated Equipment/Supplies:: No Equipment Needed Diet:: low fat DS: Summary Status at Discharge Functional status at discharge: independent ambulation Overall status at discharge: patient is progressing back to baseline Time Spent with Patient Less than 30 minutes Exam Const General: cooperative, healthy appearing and no acute distress Resp Effort & Inspection: normal respiratory effort Auscultation: clear to auscultation bilaterally and no wheezes Cardio Rate: regular rate Rhythm: regular rhythm Heart Sounds: S1 normal, S2 normal and no murmurs GI Inspection: normal to inspection and incision (4 incision sites; skinafix covering all incision sites. No erythema or discharge. ) Palpation: soft, no guarding and nontender Auscultation: normal bowel sounds DS: Data Vitals/I&O Vitals and I&O: Vital Signs Temperature 37.4 C 08/14/18 07:25 Temperature Source Tympanic 08/14/18 07:25 Pulse 58 L 08/14/18 07:25 Pulse Rhythm Regular 08/14/18 07:35 Respiratory Rate 16 08/14/18 07:25 Respiratory Effort Non-Labored 08/14/18 07:35 Respiratory Depth Normal 08/14/18 07:35 Respiratory Pattern Normal 08/14/18 07:35 Blood Pressure 111/71 08/14/18 07:25 Pulse Oximetry 96 08/14/18 07:25 Respiratory End-tidal CO2 41 08/13/18 14:03 Oxygen Delivery Method Room Air 08/14/18 07:25 Oxygen Flow Rate 0 08/14/18 07:25 Pain Level 2 08/14/18 04:05 Comment 08/14/18 04:05 Intake & Output 08/13/18 08/13/18 08/14/18 11:59 23:59 11:59 Intake Total 100 / 100 1773.5 / 1773.5 851 / 851 Output Total 1620 / 1620 500 / 500 Balance 100 / 100 153.5 / 153.5 351 / 351 Weight 59.8 kg Intake: IV 100 / 100 1053.5 / 1053.5 501 / 501 Oral 720 / 720 350 / 350 Output: Urine 1600 / 1600 500 / 500 Estimated Blood Loss Other: Urine Color Pale Yellow Yellow Urine Appearance Clear Clear Clear Urine Odor None Emesis Description None Voiding Methods Toilet Pending studies at discharge: WBC 5.96 k/cumm (4.4-10.8) 08/14/18 06:17 RBC 3.78 m/cumm (4.00-5.20) L 08/14/18 06:17 Hgb 12.2 g/dL (12.0-15.5) D 08/14/18 06:17 Hct 35.5 % (36.0-46.0) L 08/14/18 06:17 MCV 93.9 fL (80-95) 08/14/18 06:17 MCH 32.3 pg (27.0-33.0) 08/14/18 06:17 MCHC 34.4 g/dL (32.0-36.0) 08/14/18 06:17 RDW 12.2 % (11.7-14.6) 08/14/18 06:17 Plt Count 219 x1000/uL (130-400) 08/14/18 06:17 MPV 8.9 fL (8.0-11.0) 08/14/18 06:17 Immature Gran % 0.2 08/14/18 06:17 Neutrophils % 61.4 08/14/18 06:17 Lymphocytes % 27.3 08/14/18 06:17 Monocytes % 10.1 08/14/18 06:17 Eosinophils % 0.8 08/14/18 06:17 Basophils % 0.2 08/14/18 06:17 Absolute Neutrophils 3.66 k/cumm (1.2-6.7) 08/14/18 06:17 Absolute Lymphocytes 1.63 k/cumm (1.2-3.4) 08/14/18 06:17 Absolute Monocytes 0.60 k/cumm (0.11-0.7) 08/14/18 06:17 Absolute Eosinophils 0.05 k/cumm (0.0-0.7) 08/14/18 06:17 Absolute Basophils 0.01 k/cumm (0.0-0.2) 08/14/18 06:17 Sodium 141 mmol/L (136-145) 08/14/18 06:17 Potassium 3.3 mmol/L (3.5-5.1) L 08/14/18 06:17 Chloride 107 mmol/L (98-107) 08/14/18 06:17 Carbon Dioxide 28.7 mmol/L (21.0-32.0) 08/14/18 06:17 Anion Gap 5.3 mmol/L (3-11) 08/14/18 06:17 BUN 9 mg/dL (7-18) D 08/14/18 06:17 Creatinine 0.86 mg/dL (0.55-1.02) 08/14/18 06:17 Estimated GFR/1.73 m2 >= 60.00 (mL/min/1.73m2) 08/14/18 06:17 Glucose 106 mg/dL (70-100) H 08/14/18 06:17 Calcium 8.2 mg/dL (8.5-10.1) L 08/14/18 06:17 08/13/18 11:54 Gallbladder - Bile Surgical Culture - Pending 08/13/18 11:54 Gallbladder - Bile Anaerobic Culture - Pending Labs on day of discharge: Labs from last 24 hours 08/14/18 08/14/18 06:17 06:17 WBC 5.96 RBC 3.78 L Hgb 12.2 D Hct 35.5 L MCV 93.9 MCH 32.3 MCHC 34.4 RDW 12.2 Plt Count 219 MPV 8.9 Immature Gran % 0.2 Neutrophils % 61.4 Lymphocytes % 27.3 Monocytes % 10.1 Eosinophils % 0.8 Basophils % 0.2 Absolute Neutrophils 3.66 Absolute Lymphocytes 1.63 Absolute Monocytes 0.60 Absolute Eosinophils 0.05 Absolute Basophils 0.01 Sodium 141 Potassium 3.3 L Chloride 107 Carbon Dioxide 28.7 Anion Gap 5.3 BUN 9 D Creatinine 0.86 Estimated GFR/1.73 m2 >= 60.00 Glucose 106 H Calcium 8.2 L Preliminary micro results at discharge 08/13/18 11:54 Surgical Culture - Pending Gallbladder - Bile 08/13/18 11:54 Anaerobic Culture - Pending Gallbladder - Bile
--- NOTE | 2018-08-14 10:25 | PHARADMIT ---
Admission Pharmacy Clinical Review BILIARY COLIC, Chronic cholcystitis Code Status Full Code Current Weight Wgt-59.8 kg Renally Cleared and Narrow Therapeutic Index Meds CrCl~ 58.9mL/min Meds-OK QTc Value / Action Taken BP Control, Fever Electrolytes reviewed Na-141 K+3.3 DVT Prophylaxis Opiate Usage / Scheduled Bowel Regimen Ordered Plt/SCr for Heparin / Enoxaparin Plts- 219 SCr- 0.86 INR for Warfarin inr-NA H/H stable, WBC/Bands H&H- 12.2/35.5 WBC- 5.96 Antibiotic appropriateness Cultures and Sensitivities Surgical ABX d/c within 24 hr DM control / Insulin Dosing BG-106 Heart Failure (Check EF%) (LAURA's, B-Block, Diuretics) IV to PO Switch Home Meds Reviewed Home Meds Not Ordered Comments
[2018-08-14 11:10] VITALS: BP 121/75; PULSE 60; RESP 18; TEMP 36.8; O2SAT 97
--- NOTE | 2018-08-14 11:20 | INITIAL_ITS ---
Care Management Initial Assess REASON FOR HOSPITALIZATION:: Biliary Colic, chronic cholecystitis, Laparoscopic cholecystectomy PAST MEDICAL HISTORY/PAST SURGICAL HISTORY:: Laparoscopic cholescystectomy: 08/13, Depression with anxiety, osteopenia after menopause, H/O colonoscopy, delivery, former tobacco use PREVIOUS FUNCTIONAL STATUS/SOCIAL/FAMILY SUPPORTS:: Elvia resides in [place], [place] with her and teenage daughter. Elvia is not currently working, as the family relocated two years ago and she has not yet returned to the workforce. She transports her daughter to and from [facility] everyday. Her is a Banquet Food Server who commutes to [place] for work. 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 She shared that she spent her honeymoon at [facility] in [place] and her and her fell in love with the area and had always wanted to move to [place]. CURRENT FUNCTIONAL STATUS:: Elvia is lying in bed when meets with her, she anticipates returning home today and reports feeling ready. Elvia is pleasant in interaction and forthcoming with information. ADVANCE DIRECTIVES:: None on file. Has patient been provided with information about the portal?: Yes Did the patient sign up for the portal?: No CODE STATUS:: Full Code INSURANCE COVERAGE / FINANCIAL ISSUES:: BC/BS Other CURRENT HOME/COMMUNITY SERVICES/EQUIPMENT:: Review discharge instructions, discuss Ask Me Three. PRIMARY CARE PHYSICIAN:: Donna Farrell POTENTIAL DISCHARGE NEEDS:: Follow up appointment with PCP. PATIENT/FAMILY EDUCATION NEEDS:: Review discharge instructions, discuss Ask Me Three. ANTICIPATED BARRIERS TO DISCHARGE:: None identifed. TRANSPORTATION:: Via private vehicle with her . PLAN:: Elvia will return home when ready per MD. She will follow up with her PCP and plan of care as prescribed. She will transport via private vehicle with her .
--- NOTE | 2018-08-14 11:20 | PDOC.CMDIS ---
LACE Index Scoring Tool - Questions: Length of Stay (in days): 2 Acuity (Admit via E.D.?): Yes E.D. Visits: 1 - Answers: Total Score: 6 Risk of Readmission: Low Risk Care Management Discharge Reason for Hospitalization: Biliary Colic, chronic cholecystitis, Laparoscopic cholecystectomy Discharge Plan: Elvia will return home when ready per MD. She will follow up with her PCP and plan of care as prescribed. She will transport via private vehicle with her . Patient/Family Education Needs: Review discharge instructions, discuss Ask Me Three.
== END 2018-08-14 11:32 | disposition home or self-care (01) ==
LOC: SUR 08-17 16:06 → MS 08-17 16:07
PROVIDERS: Admitting Provider Surgery; PCP Family Medicine; Visit Provider Surgery
PROC: 0FT44ZZ Resection of Gallbladder, Percutaneous Endoscopic Approach (ICD-10-PCS; CPT 47562; principal; 2018-08-13 10:00)
DX: K81.2 Acute cholecystitis with chronic cholecystitis (principal)
CPT/HCPCS: 47562; 36415; 80048; 99217; 85025; 87070; 87075; 87205; 88304; G0378; J0131; J1100; J1885; J2250; J2405; J3010

== ENCOUNTER 2019-02-15 12:43 | Outpatient (REF) | payer BC, SELFPAY ==
[2019-02-15 13:09] LABS: HCT 42.1 % (36.0-46.0); HGB 14.1 g/dL (12.0-15.5); Mean Corp. HGB Concentration 33.5 g/dL (32.0-36.0); Mean Corpuscular Hemoglobin 31.4 pg (27.0-33.0); Mean Corpuscular Volume 93.8 fL (80-95); Mean Platelet Volume 8.9 fL (8.0-11.0); Platelet Count 281 x1000/uL (130-400); RBC 4.49 m/cumm (4.00-5.20); RBC Distribution Width 13.3 % (11.7-14.6); White Blood Cell Count 3.66 k/cumm (4.4-10.8)
[2019-02-15 13:25] LABS: ALT 25 U/L (12-78); AST 14 U/L (15-37); Albumin 3.7 g/dL (3.4-5.0); Alkaline Phosphatase 108 U/L (46-116); Anion Gap 8.1 mmol/L (3-11); BUN 16 mg/dL (7-18); Bilirubin, Total 0.4 mg/dL (0.2-1.0); CO2 29.9 mmol/L (21.0-32.0); CREATININE 0.72 mg/dL (0.55-1.02); Calcium 9.9 mg/dL (8.5-10.1); Chloride 104 mmol/L (98-107); Cholesterol 182 mg/dL (50-200); Glucose 89 mg/dL (70-100); HDL Cholesterol 75 mg/dL (40-60); LDL CHOLESTEROL 82 mg/dL (<100); Potassium 4.7 mmol/L (3.5-5.1); Sodium 142 mmol/L (136-145); Total Protein 6.8 g/dL (6.4-8.2); Triglyceride 54 mg/dL (30-150)
[2019-02-15 13:45] LABS: Vitamin D 25 Total 52.1 ng/ml (30-100)
== END 2019-02-15 13:03 ==
LOC: NCHCN 12:43
PROVIDERS: PCP Family Medicine; Visit Provider Family Medicine
DX: Z00.00 Encounter for general adult medical examination without abnormal findings (principal); E55.9 Vitamin D deficiency, unspecified; A69.20 Lyme disease, unspecified; M81.0 Age-related osteoporosis without current pathological fracture
CPT/HCPCS: 80053; 80061; 82306; 83721; 85027

== ENCOUNTER 2019-02-17 09:44 | Outpatient (REF) | payer BC, SELFPAY ==
--- NOTE | 2019-02-17 09:03 | PAPFT_PTH ---
PATIENT: Elvia Rodriguez LOC: [facility] U#:[id number] AGE/SX: 58/F ROOM: RE02/17/[address]: Donna Farrell : 1960 BED: DIS: 02/17/2019 SPEC #: [id number] RECD: 02/17/19 12:36 STATUS: SHMUEL MARCANO #: [id number] MARC: 02/17/19 09:[address]: Donna Farrell DEPT: [facility] Cytology RECD BY: Janet Camarena Tissues: 1 - CX/ENDOCX FOR PAP SMEARS Procedures: PAP THIN PREP/UVM Screening HPV DNA PROBE Comments: [id number]
== END 2019-02-17 10:04 ==
LOC: NCHCN 09:44
PROVIDERS: PCP Family Medicine; Visit Provider Family Medicine
DX: Z00.00 Encounter for general adult medical examination without abnormal findings (principal); Z12.4 Encounter for screening for malignant neoplasm of cervix; Z11.51 Encounter for screening for human papillomavirus (HPV); Z01.419 Encounter for gynecological examination (general) (routine) without abnormal findings
CPT/HCPCS: 88142; 87624

== ENCOUNTER 2019-04-13 07:18 | Day surgery (SDC) | payer BC, SELFPAY ==
--- NOTE | 2019-04-13 06:33 | W.PM.HP.N ---
Date of service: 04/13/19 Time of Service: 09:07 Assessment and Plan (1) Encounter for colorectal cancer screening: Current visit: No Status: Acute P\\ Colonoscopy under sedation The patient is here for Colonoscopy pre-op. Her last screening was in 2011 and was remarkable for a rectal polyp and diverticulosis. She has a family history of colon cancer in her paternal aunt. She has not had any bowel habit changes. -Discussed colonoscopy bowel prep as well as the procedure. Discussed possible complications of the procedure to include bleeding, pain, perforation, missed small lesion/polyp, sore throat, aspiration and adverse reaction to the medications. Questions were answered to patient?s satisfaction. No guarantees were implied or given. History of Present Illness Narrative: 58 y/o female presents for colonoscopy screening pre-op. Her last screening was in 2011 in [place], [place] which was remarkable for diverticulosis and a rectal polyp which was negative for adenomatous changes. Recommended repeat was 5 years. She reports a family history of colon cancer in a paternal aunt. She denies any changes in bowel habits including bloody or black tarry stools, abdominal pain, diarrhea or constipation. She denies constitutional symptoms. Denies use of marijuana or any other recreational or illegal drugs. She denies chest pain, palpitations, dyspnea or dyspnea with exertion. She walks daily for exercise. She denies prior history or family history of adverse reactions or complications with anesthesia. No changes in her health since she was last seen in the office [facility] Family History Paternal Aunt Cancer Social History Smoking/Tobacco Use Status: Former Tobacco Use Quit Date: 12/03/92 Alcohol Intake: current Alcohol Intake frequency: 0-2 drinks per day Alcohol type: wine Drug use: Never Substance use type: does not use Do you feel safe at home: Yes Do you feel safe in your relationship?: Yes Meds Home Medications Medication Instructions Recorded Confirmed Type citalopram 20 mg PO HS 08/11/18 04/13/19 History calcium carb and citrate-vitD3 1 tab PO DAILY 08/12/18 04/13/19 History [Citracal + D Slow Release] ibuprofen 200 mg tablet 200 mg PO QID PRN 03/11/19 04/13/19 History bisacodyl 5 mg tablet,delayed 5 mg PO ONCE #4 tab 03/12/19 04/13/19 Rx release cholecalciferol (vitamin D3) 2,000 1,000 unit PO DAILY PRN 03/12/19 04/13/19 History unit capsule polyethylene glycol 3350 17 238 g PO ONCE #238 gm 03/12/19 04/13/19 Rx gram/dose oral powder Allergies Allergy/AdvReac Type Severity Reaction Status Date / Time No Known Allergies Allergy Verified 04/13/19 07:28 Exam Resp Effort & Inspection: normal respiratory effort Auscultation: clear to auscultation bilaterally Cardio Rate: regular rate Rhythm: regular rhythm
--- NOTE | 2019-04-13 06:36 | W.COLOREPORT ---
Date of service: 04/13/19 Time of Service: : Colonoscopy Report Date of procedure: 04/13/19 Pre-op diagnosis general: Colon Cancer Screening Post-op diagnosis procedure note: other (Diverticulosis) Procedure: Colonoscopy Surgeon: Debbie Alvarenga Anesthesia proc note operative: other (General/ ASA 2/Hanh Bush CRNA ) Estimated blood loss (mL): 0 Pathology: none sent Complications: None Disposition: no change Indications: Mrs. Agee is a pleasant 58 year old female seen in the office for a screening colonoscopy. She had a colonoscopy in 2011 which showed a polyp and diverticulosis. Risks, benefits and complications have been reviewed. Complications include but are not limited to bleeding, pain, perforation, missed small lesion/polyp, sore throat, aspiration and adverse reaction to the medications. Questions were entertained and answered to their satisfaction and they wished to proceed. No guarantees were given or implied. Prep: Miralax/Dulcolax Procedure Start Time: : Procedure End Time: : Retraction Time: 14 minutes Findings: Moderate sigmoid diverticulosis Procedure Description: After informed consent was obtained the patient was taken to the procedure room and placed in a left decubitous position. Monitors were applied and a time out was done. The patients name, date of , procedure, allergies to medications and metal in their body was reviewed. The patient was then sedated. Once sedated and comfortable a rectal exam was done. External exam was normal. Internal exam revealed a normal sphincter tone and no palpable masses. The scope was then introduced and retro-flexed. No internal hemorrhoids were identified. The scope was then advanced to the cecum without difficulty. The TI and appendiceal orifice were identified. The prep was good. The scope was then slowly retracted over 14 minutes back into the rectum. No polyps were identified. Moderate diverticulosis noted of the sigmoid colon. The scope was removed and the patient was woken up and taken back to Same day surgery in stable condition. The patient tolerated the procedure well and there were no immediate complications. Follow up: The patient should follow up in 10 years unless they develop changes in bowel habits or other new gastrointestinal complaints.
--- NOTE | 2019-04-13 06:38 | W.PM.DSUDISC ---
Discharge Plan Disposition Patient Disposition: HOME Condition: Good Discharge Details Reason For Visit: Colon Cancer Screening Attending Provider: Debbie Alvarenga Primary Care Provider: Donna Farrell Home Meds and New Rx's Prescriptions: Continued ibuprofen 200 mg tablet 200 mg PO QID PRNRF: 0 cholecalciferol (vitamin D3) 2,000 unit capsule 1,000 unit PO DAILY PRNRF: 0 citalopram 20 mg Tablet 20 mg PO HS RF: 0 calcium carb and citrate-vitD3 [Citracal + D Slow Release] 600 mg calcium- 500 unit Tablet Extended Release 1 tab PO DAILY RF: 0 Discontinued polyethylene glycol 3350 17 gram/dose powder 238 g PO ONCE Qty: 238 RF: 0 bisacodyl [Dulcolax (bisacodyl)] 5 mg tablet,delayed release (DR/EC) 5 mg PO ONCE Qty: 4 RF: 0 Discharge Instructions Instructions: Colonoscopy (DC), Diverticulosis (DC) Additional Instructions: Findings: Diverticulosis Follow up: 10 years Please call if you develop: fevers >101.5 Nausea or Vomiting Abdominal pain that is not transient DAY SURGERY UNIT POST COLONOSCOPY INSTRUCTIONS 1. Because there will be medication in your system for the next 24 hours, you may feel a little sleepy. Your coordination will be affected. Therefore: a. Do not drive or operate dangerous equipment for 24 hours. b. Do not drink alcohol beverages for 24 hours (not even beer). c. Plan to go home and rest for the day. 2. Generally there are no restrictions on your activity after a day or so has gone by, but you may feel a bit fatigued for a few days. 3 After you arrive home you may have a light meal and return to a normal diet as you can tolerate it without feeling sick to your stomach. 4. After surgery, you may feel pain or discomfort. This should be only transient, but if it persists please contact your doctor. 5. If there are any questions regarding the findings of your procedure, please feel free to contact your doctor. 6. If you are unable to contact your doctor with a problem, contact the hospital at [phone]. 7. Continue all your regular medications unless directed otherwise. I understand the above instructions and have no questions. Signature of Patient or Responsible Adult Escort Date/Time Name of Responsible Adult Escort Signature of Nurse Date/Time Activity:: Activity as Tolerated Diet:: High fiber diet Discharge Orders Discharge Orders: Discharge Order (Routine); Ordered 04/13/19 Ordered By: Debbie Alvarenga DS: Diagnosis Discharge Diagnosis (1) Encounter for colorectal cancer screening: Status: Acute (2) Diverticulosis: Status: Acute (3) S/P colonoscopy: Status: Acute
[2019-04-13 07:41] VITALS: BP 113/71; PULSE 58; RESP 16; TEMP 35.9; O2SAT 100
[2019-04-13] MEDS: Lactated Ringers 1,000 ML 80 ML IV (07:55)
[2019-04-13 10:18] VITALS: BP 108/64; PULSE 53; RESP 16; TEMP 36.2; O2SAT 100
== END 2019-04-13 10:52 | disposition home or self-care (01) ==
LOC: SUR 07:18
PROVIDERS: PCP Family Medicine; Visit Provider Surgery
PROC: 0DJD8ZZ Inspection of Lower Intestinal Tract, Via Natural or Artificial Opening Endoscopic (ICD-10-PCS; CPT 45378; principal; 2019-04-13 08:30)
DX: Z12.11 Encounter for screening for malignant neoplasm of colon (principal); K57.30 Diverticulosis of large intestine without perforation or abscess without bleeding; Z87.19 Personal history of other diseases of the digestive system
CPT/HCPCS: 45378; NC

== ENCOUNTER 2019-07-07 16:40 | Outpatient (REF) | payer BC, SELFPAY ==
[2019-07-07 21:12] LABS: Bilirubin Negative (Negative); Blood Moderate (Negative); Clarity Cloudy (Clear); Glucose Negative (Negative); Ketones Negative (Negative); Leukocyte Esterase Moderate (Negative); Nitrite Negative (Negative); Specific Gravity 1.025 (1.005-1.025); Urobilinogen 0.2 EU/dL (Up TO 0.2); pH 5.5 (5-8)
[2019-07-07 21:36] LABS: Bacteria Many HPF (Negative); Epithelial Cells Rare HPF (Negative); Other Cells Rare Renal (Negative); RBC >50 (0-2); WBC >50 HPF (0-5)
[2019-07-07 21:37] LABS: C & S Indicated? C&S Done As Ordered; Casts Negative LPF (Negative); Crystals Negative HPF (Negative); Mucus Negative (Negative)
== END 2019-07-07 17:00 ==
LOC: NCHCN 16:40
PROVIDERS: PCP Family Medicine; Visit Provider Family Medicine
DX: N39.0 Urinary tract infection, site not specified (principal)
CPT/HCPCS: 81003; 81015; 87086

== ENCOUNTER 2020-08-18 10:01 | Outpatient (REF) | payer BC, SELFPAY ==
[2020-08-18 21:00] LABS: HCT 42.1 % (36.0-46.0); HGB 14.2 g/dL (11.2-15.7); MCH 31.8 pg (27.0-33.0); MCHC 33.7 % (32.0-36.0); MCV 94.4 fL (80-95); MPV 9.1 fL (8.0-11.0); Platelet Count 225 10^3/uL (130-400); RBC 4.46 10^6/uL (3.93-5.22); RDW 12.4 % (11.7-14.6); RDW-SD 43.1 fL; WBC 3.52 10^3/uL (4.4-10.8)
[2020-08-18 21:27] LABS: ALT 24 U/L (14-59); AST 18 U/L (15-37); Albumin 3.9 g/dL (3.4-5.0); Alkaline Phosphatase 87 U/L (46-116); Anion Gap 2.1 mmol/L (3-11); BUN 17 mg/dL (7-18); CO2 31.9 mmol/L (21.0-32.0); CREATININE 0.69 mg/dL (0.55-1.02); Calcium 9.4 mg/dL (8.5-10.1); Calculated LDL 89 mg/dL (<100); Chloride 105 mmol/L (98-107); Cholesterol 191 mg/dL (<200); Glucose 93 mg/dL (74-106); HDL Cholesterol 92 mg/dL (40-60); Potassium 4.7 mmol/L (3.5-5.1); Sodium 139 mmol/L (136-145); Total Protein 6.7 g/dL (6.4-8.2); Triglyceride 52 mg/dL (<150)
[2020-08-18 21:53] LABS: Bilirubin, Total 0.7 mg/dL (0.2-1.0)
[2020-08-21 08:17] LABS: Vitamin D 25 Total 55.8 ng/ml (30-100)
== END 2020-08-18 10:21 ==
LOC: NCHCN 10:01
PROVIDERS: PCP Family Medicine; Visit Provider Family Medicine
DX: Z00.00 Encounter for general adult medical examination without abnormal findings (principal); E55.9 Vitamin D deficiency, unspecified; Z13.220 Encounter for screening for lipoid disorders
CPT/HCPCS: 80053; 80061; 82306; 85027

== ENCOUNTER 2021-08-23 09:57 | Outpatient (REF) | payer BC, SELFPAY ==
[2021-08-23 14:15] LABS: HCT 44.7 % (36.0-46.0); HGB 14.9 g/dL (11.2-15.7); MCH 31.8 pg (27.0-33.0); MCHC 33.3 % (32.0-36.0); MCV 95.5 fL (80-95); MPV 8.6 fL (8.0-11.0); Platelet Count 286 10^3/uL (130-400); RBC 4.68 10^6/uL (3.93-5.22); RDW-SD 42.1 fL; WBC 3.92 10^3/uL (4.4-10.8)
[2021-08-23 14:52] LABS: ALT 42 U/L (14-59); AST 24 U/L (15-37); Albumin 3.9 g/dL (3.4-5.0); Alkaline Phosphatase 75 U/L (46-116); Anion Gap 4.4 mmol/L (3-11); BUN 15 mg/dL (7-18); Bilirubin, Total 0.4 mg/dL (0.2-1.0); CO2 32.6 mmol/L (21.0-32.0); CREATININE 0.8 mg/dL (0.55-1.02); Calcium 10.1 mg/dL (8.5-10.1); Calculated LDL 116 mg/dL (<100); Chloride 106 mmol/L (98-107); Cholesterol 206 mg/dL (<200); Glucose 87 mg/dL (74-106); HDL Cholesterol 80 mg/dL (40-60); Potassium 5.4 mmol/L (3.5-5.1); Sodium 143 mmol/L (136-145); Total Protein 6.7 g/dL (6.4-8.2); Triglyceride 52 mg/dL (<150)
[2021-08-23 15:08] LABS: Vitamin D 25 Total 61.8 ng/mL (30-100)
== END 2021-08-23 09:58 | disposition home or self-care (01) ==
LOC: NCHCN 09:57
PROVIDERS: PCP Family Medicine; Visit Provider Family Medicine
DX: E55.9 Vitamin D deficiency, unspecified (principal); A69.20 Lyme disease, unspecified; Z00.00 Encounter for general adult medical examination without abnormal findings
CPT/HCPCS: 80053; 80061; 82306; 85027

== ENCOUNTER 2021-09-06 01:58 | Outpatient (CLI) | payer BC, SELFPAY ==
--- NOTE | 2021-09-06 | DI.MAMMO_ITS ---
Exam(s) MAMMO SCREENING EXAM: MAMMO SCREENING CLINICAL HISTORY: SCREENING, Z12.31. TECHNIQUE: Bilateral full field digital CC and MLO mammographic images were obtained with 3D tomosyn thesis and utilizing computer aided detection (CAD). COMPARISON: Prior mammograms dating back to 2013, the most recent being February 2018. FINDINGS: The fibroglandular tissue pattern is again noted be moderately dense, this decreasing the sensitivity of the mammogram for finding hidden underlying lesions. In the posterior aspect of the left breast an asymmetric density possible nodule seen on the CC view located 6 cm in from the nipple measuring approximately 8 by 6 millimeters. Possibly significant. N umerous benign-appearing punctate microcalcifications are again noted in both breast. In the superior aspect of the left breast there is also an asymmetric density noted, possibly corresp onding to the same density seen posteriorly on the ipsilateral CC view. No new obvious abnormalities in the opposite-right breast. There is no significant architectural distortion nor skin thickening-retraction. IMPRESSION: Dense bilateral fibroglandular tissue. Asymmetric density in the left breast as described above. Lo cated posteriorly on the CC view and superiorly on the MLO view. Recommend spot compression 3D cc an d MLO views of the left breast as well as breast ultrasound. BI-RADS Category 0 - Assessment Incomplete: Need additional imaging evaluation Breast Density - Category C - Heterogeneously dense Breast density Category C or D implies that the patient has dense breast tissue. Dense breast tissue can make it harder to find cancer on a mammogram. Dense breast tissue is also associated with an incr eased risk of breast cancer. This information about the result of the mammogram report was provided to the patient to raise their awareness. Use this report when you speak with the patient about their risks for breast cancer, which includes their family history. At that time, you may recommend additional screening tests (Ultrasoun d or MRI) as these tests may add significant information. A negative radiographic report should not delay biopsy if a dominant or clinically suspicious mass is present. Up to ten percent of cancers are not identified on mammography. A negative report may reinforce clinical impression. Adenosis and dense breasts may obscure an underlying neoplasm. False positive reports average 6 to 10%. Patient will receive a letter notifying them of these results.
== END 2021-09-06 02:18 ==
PROVIDERS: PCP Family Medicine; Visit Provider Family Medicine
DX: Z12.31 Encounter for screening mammogram for malignant neoplasm of breast (principal); R92.8 Other abnormal and inconclusive findings on diagnostic imaging of breast
CPT/HCPCS: 77063; 77067

== ENCOUNTER 2021-09-14 00:30 | Outpatient (CLI) | payer BC, SELFPAY ==
--- NOTE | 2021-09-14 | DI.US_ITS ---
Exam(s) MG MAMMO SCREEN CALL BACK UNI US BREAST LT LIMITED EXAM: US BREAST LT LIMITED CLINICAL HISTORY: F/U MAMMO, 2 ASYMMETRIC DENSITIES, ? NODULE TECHNIQUE: Ultrasound performed using standard protocol. COMPARISON: MG MAMMO SCREEN CALL BACK UNI from 09/14/2021 FINDINGS: Additional mammographic views of the left breast and left breast ultrasound are interpreted in conjun ction. These examinations were obtained to evaluate questionable area of nodularity projected in the 12 o'clock position in the left breast. Additional mammographic views fail to show a discrete mass. Breast ultrasound shows no evidence of a mass or cyst in this area. IMPRESSION: No specific evidence of malignancy at this time. Follow-up unilateral left breast mammogram recommen ded in 6 months. BI-RADS Cat 3 - 6 month - Probably Benign Finding: Recommend follow-up imaging in 6 months Breast Density - Category C - Heterogeneously dense DATA REPOSITORY:
== END 2021-09-14 00:50 ==
PROVIDERS: PCP Family Medicine; Visit Provider Family Medicine
DX: R92.8 Other abnormal and inconclusive findings on diagnostic imaging of breast (principal)
CPT/HCPCS: 76642; 77063; 77067

== ENCOUNTER 2021-10-23 00:21 | Outpatient (CLI) | payer BC, SELFPAY ==
[2021-10-23] MEDS: Breeza Beverage 473 ML BTL PO ×2 (12:40→12:41)
[2021-10-23] MEDS: Omnipaque 350 MG/ML 50 ML BTL PO (12:41)
--- NOTE | 2021-10-23 14:00 | DI.CT_ITS ---
Exam(s) CT ABDOMEN PELVIS W EXAM: CT ABDOMEN PELVIS W CLINICAL HISTORY: DIVERTICULITIS K57.92 TECHNIQUE: Imaging Protocol: Axial computed tomography images with coronal and sagittal reformatted images were created and reviewed CONTRAST MATERIAL: Intravenous: Omnipaque 350 Contrast volume:100 mL Oral: Yes FINDINGS: ABDOMEN: Lung Bases: Normal where visualized. Liver: Normal density. No measurable mass. There is a stable right hepatic cyst. Portal, Superior Mesenteric, and Splenic Veins: Unremarkable. Gallbladder and Biliary Tract: Status post cholecystectomy. Mild dilatation of the extrahepatic comm on bile duct which is likely related to the post cholecystectomy state. Pancreas: Normal density, no abnormal calcifications or inflammatory process. Spleen: Normal. Adrenals: No masses seen. Kidneys: Normal size, contour and axis. No radiodense stones or obstructive uropathy. No masses seen. Abdominal Aorta: Abdominal portion non-dilated. Atherosclerosis. Bowel: No obstruction or bowel wall thickening. No evidence of appendicitis. There is diverticulosis of the sigmoid colon but no evidence of acute diverticulitis. Peritoneal Cavity: No ascites, collection or mesenteric inflammatory response. No free air. Lymph Nodes: Within normal limits. Bones: Within normal limits for the patient's age. Soft Tissues: Unremarkable. PELVIS: Bladder: Symmetric distention, no gross wall thickening. Reproductive Organs: Unremarkable as visualized. Lymph Nodes: Within normal limits. Bones: Within normal limits for the patient's age. IMPRESSION: 1. No acute abdominal or pelvic process. 2. Sigmoid diverticulosis but no evidence of acute diverticulitis. RADIATION DOSE DELIVERED: 581.03mGy.cm Total DLP DATA REPOSITORY: All CT scans at this facility are submitted to the National Radiology Data Registry (NRDR) Dose Index Registry (DIR) with the [employer] (A[employer]). RADIATION OPTIMIZATION: All CT scans at this facility use at least one of these dose optimization te chniques: automated exposure control; mA and/or kV adjustment per patient size (includes targeted exa ms where dose is matched to clinical indication); or iterative reconstruction.
[2021-10-23] MEDS: Omnipaque 350 MG/ML 100 ML BTL IJ (14:08)
[2021-10-23] MEDS: Normal Saline Flush 10 ML SYR IVP (14:10)
== END 2021-10-23 00:41 ==
PROVIDERS: PCP Family Medicine; Visit Provider Family Medicine
DX: K57.90 Diverticulosis of intestine, part unspecified, without perforation or abscess without bleeding (principal); Z87.19 Personal history of other diseases of the digestive system
CPT/HCPCS: 74177; J3490; Q9967

== ENCOUNTER 2021-10-30 13:56 | Outpatient (REF) | payer BC, SELFPAY ==
[2021-10-30 14:48] LABS: Potassium 4.7 mmol/L (3.5-5.1)
== END 2021-10-30 13:57 | disposition home or self-care (01) ==
LOC: NCHCN 13:56
PROVIDERS: PCP Family Medicine; Visit Provider Family Medicine
DX: E87.5 Hyperkalemia (principal)
CPT/HCPCS: 84132

== ENCOUNTER 2021-12-06 18:06 | Outpatient (REF) | payer BC, SELFPAY ==
[2021-12-06 17:02] LABS: Potassium 4.4 mmol/L (3.5-5.1)
== END 2021-12-06 18:07 | disposition home or self-care (01) ==
LOC: NCHCN 18:06
PROVIDERS: PCP Family Medicine; Visit Provider Family Medicine
DX: E87.5 Hyperkalemia (principal)
CPT/HCPCS: 84132

== ENCOUNTER 2022-03-18 00:54 | Outpatient (CLI) | payer BC, SELFPAY ==
--- NOTE | 2022-03-18 13:45 | DI.MAMMO_ITS ---
Exam(s) MAMMO DIAGNOSTIC UNI EXAM: MAMMO DIAGNOSTIC UNI CLINICAL HISTORY: ABNL LEFT MAMMO R92.8. TECHNIQUE: Craniocaudal and mediolateral oblique Full Field Digital Mammography views of the breast with Computer Aided Diagnosis followed by Tomosynthesis. COMPARISON: - and 14 September 2021 and exams back to 2013. FINDINGS: Mammography/Tomosynthesis: Masses/Architectural Distortion: None seen. Previously questioned area of nodularity not present on t tin's exam. No change in parenchymal pattern from remote priors. Microcalcifictions: No suspicious pleomorphic-type are seen. Skin Thickening/Nipple Retraction: None. IMPRESSION: 1. No evidence of malignancy is noted. 2. Unless there is more urgent need, follow-up bilateral screening mammography is recommended, in 6 m [facility]. BI-RADS Category 1 - Negative Breast Density - Category C - Heterogeneously dense Breast density category C or D implies that the patient has dense breast tissue. Dense breast tissue is very common and is not abnormal but dense breast tissue can make it harder to find cancer on a ma mmogram. Also, dense breast tissue may increase their breast cancer risk. This information about the result of the mammogram report was provided to the patient to raise their awareness. Use this report when you speak with the patient about their risks for breast cancer, which includes their family hist ory. At that time, you may recommend for more screening tests (Ultrasound or MRI) as they might be us eful based on their risk. A negative radiographic report should not delay biopsy if a dominant or clinically suspicious mass is present. Up to ten percent of cancers are not identified on mammography. A negative report may reinforce clinical impression. Adenosis and dense breasts may obscure an underlying neoplasm. False positive reports average 6 to 10%. Patient will receive a letter notifying them of these results.
== END 2022-03-18 01:14 ==
PROVIDERS: PCP Family Medicine; Visit Provider Family Medicine
DX: R92.8 Other abnormal and inconclusive findings on diagnostic imaging of breast (principal)
CPT/HCPCS: 77061; 77065; G0279

== ENCOUNTER → 2022-10-29 01:34 | Outpatient (CLI) | payer BC, SELFPAY ==
--- NOTE | 2022-10-29 08:00 | DI.MAMMO_ITS ---
Exam(s) MAMMO SCREENING EXAM: MAMMO SCREENING CLINICAL HISTORY: SCREENING, Z12.39 TECHNIQUE: Bilateral full field digital CC and MLO mammographic images were obtained with 3D tomosyn thesis and utilizing computer aided detection (CAD). COMPARISON: Available for comparison. FINDINGS: Masses/Architectural Distortion: None seen. Microcalcifications: No suspicious pleomorphic-type are seen. Skin Thickening/Nipple Retraction: None. IMPRESSION: 1. No significant interval change with no specific features of malignancy noted. 2. Unless there is more urgent need, screening mammography is recommended, as per [employer] guidelines. BI-RADS Category 1 - Negative Breast Density - Category C - Heterogeneously dense Breast density category C or D implies that the patient has dense breast tissue. Dense breast tissue is very common and is not abnormal but dense breast tissue can make it harder to find cancer on a ma mmogram. Also, dense breast tissue may increase their breast cancer risk. This information about the result of the mammogram report was provided to the patient to raise their awareness. Use this report when you speak with the patient about their risks for breast cancer, which includes their family hist ory. At that time, you may recommend for more screening tests (Ultrasound or MRI) as they might be us eful based on their risk. A negative radiographic report should not delay biopsy if a dominant or clinically suspicious mass is present. Up to ten percent of cancers are not identified on mammography. A negative report may reinforce clinical impression. Adenosis and dense breasts may obscure an underlying neoplasm. False positive reports average 6 to 10%. Patient will receive a letter notifying them of these results.
== END ==
PROVIDERS: PCP Family Medicine; Visit Provider Family Medicine
DX: Z12.31 Encounter for screening mammogram for malignant neoplasm of breast (principal); R92.8 Other abnormal and inconclusive findings on diagnostic imaging of breast
CPT/HCPCS: 77063; 77067

== ENCOUNTER 2023-02-19 15:02 | Outpatient (REF) | payer BC, SELFPAY ==
[2023-02-19 15:10] LABS: Abs Immature Grans 0.01 10^3/uL (0.0-0.06); Absolute Basophil Count 0.04 10^3/uL (0.0-0.2); Absolute Eosinophil Count 0.19 10^3/uL (0.0-0.7); Absolute Monocyte Count 0.44 10^3/uL (0.1-0.8); Absolute Neutrophil Count 1.87 10^3/uL (1.2-6.7); Basophils % 0.9; Eosinophils % 4.5; HCT 42.6 % (36.0-46.0); HGB 14.7 g/dL (11.2-15.7); Immature Grans % 0.2; MCH 31.5 pg (27.0-33.0); MCHC 34.5 % (32.0-36.0); MCV 91 fL (80-95); MPV 8.9 fL (8.0-11.0); Monocytes % 10.4; Platelet Count 240 10^3/uL (130-400); RBC 4.66 10^6/uL (3.93-5.22); RDW-SD 39.9 fL; WBC 4.25 10^3/uL (4.4-10.8)
[2023-02-19 15:14] LABS: ALT 26 U/L (14-59); AST 20 U/L (15-37); Albumin 3.9 g/dL (3.4-5.0); Alkaline Phosphatase 107 U/L (46-116); Anion Gap 9.5 mmol/L (3-11); BUN 20 mg/dL (7-18); Bilirubin, Total 0.5 mg/dL (0.2-1.0); CO2 28.5 mmol/L (21.0-32.0); CREATININE 0.6 mg/dL (0.55-1.02); Calcium 9.8 mg/dL (8.5-10.1); Chloride 108 mmol/L (98-107); Estimated GFR 101.42 (mL/min/1.73m2); Glucose 83 mg/dL (74-106); Potassium 4.5 mmol/L (3.5-5.1); Sodium 146 mmol/L (136-145); TSH (W/Ref FT4) 2.92 uIU/mL (0.36-3.74); Total Protein 6.8 g/dL (6.4-8.2)
[2023-02-19 15:27] LABS: ESR 2 mm/hr (0-30)
== END 2023-02-19 15:03 | disposition home or self-care (01) ==
LOC: NCHCN 15:02
PROVIDERS: PCP Family Medicine; Visit Provider Family Medicine
DX: R53.83 Other fatigue (principal)
CPT/HCPCS: 80053; 85652; 84443; 85025

== ENCOUNTER → 2023-11-03 01:04 | Outpatient (CLI) | payer BC, SELFPAY ==
--- NOTE | 2023-11-03 08:45 | DI.MAMMO_ITS ---
Exam(s) MAMMO SCREENING EXAM: MAMMO SCREENING CLINICAL HISTORY: SCREENING,Z12.31 TECHNIQUE: Bilateral full field digital CC and MLO mammographic images were obtained with 3D tomosyn thesis and utilizing computer aided detection (CAD). COMPARISON: Available for comparison. FINDINGS: Masses/Architectural Distortion: None seen. Microcalcifications: No suspicious pleomorphic-type are seen. Skin Thickening/Nipple Retraction: None. IMPRESSION: 1. No significant interval change with no specific features of malignancy noted. 2. Unless there is more urgent need, screening mammography is recommended, as per [employer] guidelines. BI-RADS Category 1 - Negative Breast Density - Category C - Heterogeneously dense Breast density category C or D implies that the patient has dense breast tissue. Dense breast tissue is very common and is not abnormal but dense breast tissue can make it harder to find cancer on a ma mmogram. Also, dense breast tissue may increase their breast cancer risk. This information about the result of the mammogram report was provided to the patient to raise their awareness. Use this report when you speak with the patient about their risks for breast cancer, which includes their family hist ory. At that time, you may recommend for more screening tests (Ultrasound or MRI) as they might be us eful based on their risk. A negative radiographic report should not delay biopsy if a dominant or clinically suspicious mass is present. Up to ten percent of cancers are not identified on mammography. A negative report may reinforce clinical impression. Adenosis and dense breasts may obscure an underlying neoplasm. False positive reports average 6 to 10%. Patient will receive a letter notifying them of these results.
== END ==
PROVIDERS: PCP Family Medicine; Visit Provider Family Medicine
DX: Z12.31 Encounter for screening mammogram for malignant neoplasm of breast (principal)
CPT/HCPCS: 77063; 77067

== ENCOUNTER 2024-01-14 13:33 | Outpatient (REF) | payer BC, SELFPAY ==
--- NOTE | 2024-01-14 10:00 | PAPFT_PTH ---
PATIENT: Elvia Rodriguez LOC: [facility]#:[id number] AGE/SX: 63/F ROOM: RE01/14/[address]: Donna Farrell : 1960 BED: DIS: 01/14/2024 SPEC #: [id number] RECD: 01/14/24 18:07 STATUS: SHMUEL REAngela #: [id number] MARC: 01/14/24 10:[address]: Donna Farrell DEPT: [facility] Cytology RECD BY: Janet Camarena Tissues: 1 - CX/ENDOCX FOR PAP SMEARS Procedures: PAP THIN PREP/UVM Screening HPV DNA PROBE Comments: [id number]
[2024-01-14 14:35] LABS: ALT 28 U/L (14-59); AST 17 U/L (15-37); Albumin 4.1 g/dL (3.4-5.0); Alkaline Phosphatase 111 U/L (46-116); Anion Gap 9.6 mmol/L (3-11); BUN 22 mg/dL (7-18); Bilirubin, Total 0.6 mg/dL (0.2-1.0); CO2 29.4 mmol/L (21.0-32.0); CREATININE 0.8 mg/dL (0.55-1.02); Calcium 9.8 mg/dL (8.5-10.1); Calculated LDL 106 mg/dL (<100); Chloride 104 mmol/L (98-107); Cholesterol 219 mg/dL (<200); Estimated GFR 82.74 (mL/min/1.73m2); Glucose 88 mg/dL (74-106); HDL Cholesterol 99 mg/dL (40-60); Potassium 4.5 mmol/L (3.5-5.1); Sodium 143 mmol/L (136-145); Total Protein 7.2 g/dL (6.4-8.2); Triglyceride 72 mg/dL (<150)
[2024-01-14 15:19] LABS: Vitamin D 25 Total 46.6 ng/mL (30-100)
== END 2024-01-14 13:34 | disposition home or self-care (01) ==
LOC: NCHCN 13:33
PROVIDERS: PCP Family Medicine; Referring Provider Family Medicine; Visit Provider Family Medicine
DX: Z00.00 Encounter for general adult medical examination without abnormal findings (principal)
CPT/HCPCS: 80053; 80061; 82306; 88142; 87624

== ENCOUNTER → 2024-01-22 02:36 | Outpatient (CLI) | payer BC, SELFPAY ==
--- NOTE | 2024-01-22 | DI.DEXA_ITS ---
Exam(s) XR DEXA BONE DENSITY W/WO JULES EXAM: XR DEXA BONE DENSITY W/WO JULES CLINICAL HISTORY: ADULT HEALTH EXAMINATION, Z00.00, SCREENING TECHNIQUE: Routine DEXA evaluation of the lumbar spine, hip, or forearm. COMPARISON: Prior DEXA scan of February 2018 FINDINGS: Performed on a [employer] unit. Lateral image: No compression fracture evident. Lumbar Spine total T-score: -3.1. The prior reading was -2.6 in February 2018 Hip total T-score:-1.5. Prior 2018 reading was -1.1 Independent reading at the level of the femoral neck yields T-score of -1.7 Forearm total T-score: -2.9. The prior reading in 2018 was -2.2. IMPRESSION: Bone mineral density measures in the osteoporosis range. Fracture risk is high. Note: Any spine fracture indicates 5x risk for subsequent spine fracture and 2x risk for subsequent h ip fracture. World Health Organization criteria for BMD interpretation classify patients: Normal...... T- Score at or above -1.0 Osteopenic... T- Score between -1.0 and -2.5 Osteoporosis... T-Score at or below -2.5
== END ==
PROVIDERS: PCP Family Medicine; Visit Provider Family Medicine
DX: Z13.820 Encounter for screening for osteoporosis (principal); M81.0 Age-related osteoporosis without current pathological fracture
CPT/HCPCS: 77080

== ENCOUNTER 2024-07-27 11:12 | Emergency (ER) | payer BC, SELFPAY ==
[2024-07-27] VITALS (38 sets, daily range): BP systolic 111–146; BP diastolic 51–93; PULSE 58–77; RESP 7–19; TEMP 36.6; O2SAT 95–100
--- NOTE | 2024-07-27 11:00 | RT.EKG_ITS ---
APPROVED REPORT Exam: Resting ECG Reason for Exam: dizziness Patient Location: E HR:60 bpm ECG Measurements Heart Rate 60 AXIS DC 197 P 65 QRSd 83 QRS 47 QT 420 T 51 QTc 419 Conclusion Sinus rhythm...normal P axis, V-rate 60- 99
--- OUTSIDE RECORDS SUMMARY | 2024-07-27 11:27 | XMS_ITS | Encounter Summary ---
Author Organization [facility] Address [address] [place] [address] Care Team Providers Care Date Puller Name Role Phone Unavailable Primary Care Provider Unavailabl e Encounter Details Date Type Department Care Team (Latest Contact Info) Description 08/13/2018 18:29 EDT - 08/13/2018 23:59 EDT Hospital Encounter [address] [address] Unknown, Provider, Discharge Disposition: Home or Self Care Social History Tobacco Use Types Packs/Day Years Used Date Smoking Tobacco: Never Assessed Sex and Gender Information Value Date Recorded Sex Assigned at Not on file Gender Identity Not on file Sexual Orientation Not on file documented as of this encounter Discharge Disposition Disposition Code Departure Means Destination Home or Self Half[place] documented in this encounter Plan of Treatment Not on file documented as of this encounter Visit Diagnoses Not on filedocumented in this encounter
--- OUTSIDE RECORDS SUMMARY | 2024-07-27 11:27 | XMS_ITS | Referral Summary ---
Author Organization [facility] Address [address] [place] [address] Care Team Providers Care Scout Sniper Name Role Phone Unknown, Provider Primary Care Provider Encounters Date Type Department Care Team Description 06/25/2024 Orders Only [facility] [address] [place] [id number] Gregor Crawford MD from Last 3 Months Medications Medication Sig Dispensed Refills Start Date End Date Status dicyclomine (BENTYL) 10 mg capsule Take 1 Capsule by mouth at bedtime. 90 Capsule 3 06/25/2024 Active Social History Tobacco Use Types Packs/Day Years Used Date Smoking Tobacco: Never Assessed Interpersonal Safety Answer Date Record ed Physically Hurt Never 06/19/2020 Verbally Threaten Not on file 06/19/2020 Sex and Gender Information Value Date Recorded Sex Assigned at Not on file Gender Identity Not on file Sexual Orientation Not on file Plan of Treatment Not on file Care Teams Scout Sniper Relationship Specialty Start Date End Date Unknown, ProviderMD PCP - General 08/14/18
--- OUTSIDE RECORDS SUMMARY | 2024-07-27 11:27 | XMS_ITS | Encounter Summary ---
Author Organization [facility] Address [address] [place] [address] Care Team Providers Care Carbon Sequestration Plant Manager Name Role Phone Unknown, Provider Primary Care Provider Encounter Details Date Type Department Care Team (Latest Contact Info) Description 01/16/2024 Lab Requisition [facility] - [facility] [address] [place] [address] Donna Farrell MD [address] [place] [phone] Encounter for gynecological examination (general) (routine) without abnormal findings; Encounter for screening for malignant neoplasm of colon; Encounter for general adult medical examination without abnormal findings Social History Tobacco Use Types Packs/Day Years Used Date Smoking Tobacco: Never Assessed Interpersonal Safety Answer Date Record ed Physically Hurt Never 06/19/2020 Verbally Threaten Not on file 06/19/2020 Sex and Gender Information Value Date Recorded Sex Assigned at Not on file Gender Identity Not on file Sexual Orientation Not on file documented as of this encounter Plan of Treatment Not on file documented as of this encounter Procedures Procedure Name Priority Date/Time Associated Diagnosis Comments PAP TEST Today 01/14/2024 10:00 EST Encounter for gynecological examination (general) (routine) without abnormal findings Encounter for screening for malignant neoplasm of colon Encounter for general adult medical examination without abnormal findings HPV DNA DETECTION WITH GENOTYPING, PCR Today 01/14/2024 10:00 EST Encounter for gynecological examination (general) (routine) without abnormal findings Encounter for screening for malignant neoplasm of colon Encounter for general adult medical examination without abnormal findings documented in this encounter Results * HUMAN PAPILLOMAVIRUS (HPV) DETECTION-HIGH RISK TYPES (01/14/2024 10:00 EST) HPV other High Risk types, PCR Negative Negative 01/22/2024 19:00 [facility] Comment:No E6 or E7 mRNA is detected from HPV types 16,18,31,33,35,39,45,51,52,56,58,59,66, and 68 by data warehouse architect mediated amplification. Pap Test CERVIX UTERI STRUCTURE / Unknown 01/14/2024 10:00 EST 01/21/2024 13:41 EST Donna Farrell MD MICROBIOLOGY - GENER AL ORDERABLES [facility] [address] [place] [id number] * PAP TEST (01/14/2024 10:00 EST) Specimens A. Cervix and/or Endocervix , ThinPrep Imaging System with Manual Evaluation 01/22/2024 19:00 [facility] Specimen Adequacy Satisfactory for Evaluation - assessment of transformation zone component not applicable ( e.g. atrophy, vaginal sample, hysterectomy) Scant squamous epithelial component 01/22/2024 19:00 [facility] General Categorization Negative for intraepithelial lesion or malignancy 01/22/2024 19:00 [facility] Attestation . 01/22/2024 19:00 [facility] at 1900 Clinical History See below 01/22/20 24 19:00 [facility] HPV The result for the Human Papillomavirus (HPV) Detection-High Risk Types is Negative. No E6 or E7 mRNA is detected from HPV types 16,18,31,33,35,39 ,45,51,52,56,58,5 9,66, and 68 by data warehouse architect mediated amplification.Zarina ting was performed on specimen [id number] and was resulted on 01/22/2024 1900 EST by ZACKERY, LAB INSTRUMENT RESULTS IN 01/22/2024 19:00 [facility] Performing Lab [facility] 01/22/2024 19:00 EST [facility] Scanned Images 01/22/2024 19:00 EST [facility] Pap Test CERVIX UTERI STRUCTURE / Unknown 01/14/2024 10:00 EST 01/16/2024 9:58 EST Donna Farrell MD PATHOLOGY ORDERABLES Performing Organization Address City/State/[facility] Co de Phone Number [facility] [address] [place] [phone] documented in this encounter Visit Diagnoses Diagnosis Encounter for gynecological examination (general) (routine) without abnormal findings Encounter for screening for malignant neoplasm of colon Special screening for malignant neoplasms, colon Encounter for general adult medical examination without abnormal findings Unspecified general medical examination documented in this encounter Care Teams Carbon Sequestration Plant Manager Relationship Specialty Start Date End Date Unknown, Provider, PCP - General 08/14/18 documented as of this encounter
--- OUTSIDE RECORDS SUMMARY | 2024-07-27 11:27 | XMS_ITS | Encounter Summary ---
Author Organization [facility] Address [address] [place] [address] Care Team Providers Care Kennel Operator Name Role Phone Unknown, Provider Primary Care Provider Encounter Details Date Type Department Care Team (Late st Contact Info) Description 08/13/2018 Results Only [facility] [phone] Brenna Parekh MD [address] [place] [address] [place] [address] Social History Tobacco Use Types Packs/Day Years Used Date Smoking Tobacco: Never Assessed Sex and Gender Information Value Date Recorded Sex Assigned at Not on file Gender Identity Not on file Sexual Orientation Not on file documented as of this encounter Plan of Treatment Not on file documented as of this encounter Procedures Procedure Name Priority Date/Time Associated Diagnosis Comments SURGICAL PATHOLOGY Routine 08/13/2018 9:47 EDT documented in this encounter Results * SURGICAL PATHOLOGY (08/13/2018 9:47 EDT) Pathology Report: SURGICAL PATHOLOGY REPORT Reports generated via electronic interface contain original data; however they are lacking the format of the original report. Caution should be taken when reading/interpret ing unformatted reports. Name: ? EDSON MURGUIA ? Accession #: ? [id number] ? : ? 1960 (Age: 58) ??F ? Collect Date: ? 08/13/2018 ? Location: ? [facility] ? Receive Date: ? 08/13/2018 ? Provider: BRENNA PAREKH MD Copy to: YULISA ROBERTS MD ? Final Pathologic Diagnosis: GALLBLADDER, CHOLECYSTECTOMY: - Early acute on chronic cholecystitis. - Cholelithiasis. Document reviewed and electronically signed by: LAURA PITTS MD Report ??Date: 08/19/2018 12:38 By the signature above, the attending physician certifies that he/she has personally conducted a gross and/or microscopic examination of the described specimens and rendered or confirmed the above diagnosis. Specimen(s) Received: Gallbladder Clinical History: Biliary cholic Gross Description: ? Received in formalin labelled with proper patient identification (initials M, R) and gallbladder is an intact gallbladder (11.5 x 3.4 x 1.0 cm). The cystic duct margin is inked black. ? The serosa is kurtz-purple with a minimal amount of right adipose tissue and a thick white exudate. The mucosa is rao-kurtz and granular with a wall thickness ranging from 0.1-0.2 cm. The cystic duct lumen is which. Within the cavity are two yellow ovoid, granular gallstones measuring 1.7 cm and 2.6 cm in greatest dimension. The cystic duct margin, en face, and two cross sections are submitted in 1. ANDRA Parra (ASCP) 08/14/2018 1:57 PM End of Report [facility] 08/13/2018 9:47 EDT 08/13/2018 9:47 EDT Brenna Parekh MD PATHOLOGY ORDERA SARATH [facility] [address] [place] [address] documented in this encounter Visit Diagnoses Not on filedocumented in this encounter Care Teams Kennel Operator Relationship Specialty Start Date End Date Unknown, Provider, PCP - General 08/14/18 documented as of this encounter
--- OUTSIDE RECORDS SUMMARY | 2024-07-27 11:27 | XMS_ITS | Encounter Summary ---
Author Organization [facility] Address [address] [place] [address] Care Team Providers Care Assistant Buyer Name Role Phone Unknown, Provider Primary Care Provider Encounter Details Date Type Department Care Team (Late st Contact Info) Description 02/17/2019 Results Only [facility] [phone] Yulisa Farrell MD [address] [place] [phone] Social History Tobacco Use Types Packs/Day Years Used Date Smoking Tobacco: Never Assessed Sex and Gender Information Value Date Recorded Sex Assigned at Not on file Gender Identity Not on file Sexual Orientation Not on file documented as of this encounter Plan of Treatment Not on file documented as of this encounter Procedures Procedure Name Priority Date/Time Associated Diagnosis Comments PAP TEST- RESULT ONLY Routine 02/17/2019 0:00 EDT documented in this encounter Results * PAP TEST- RESULT ONLY (02/17/2019 0:00 EDT) Pathology Report: CYTOPATHOLOGY REPORT Reports generated via electronic interface contain original data; however they are lacking the format of the original report. Caution should be taken when reading/interpret lani unformatted reports. Name: ? EDSON MURGUIA ? Accession #: ? [id number] ? : ? 1960 (Age: 58) ??F ?Collect Date: ? 02/17/2019 ? Location: ? [facility] ? Receive Date: ? 02/18/2019 ? Provider: YULISA FARRELL MD Copy to: ? Final Report SPECIMEN ADEQUACY ? Satisfactory for Evaluation - transformation zone component present GENERAL CATEGORIZATION ? Negative for Intraepithelial Lesion or Malignancy ?? Last Menstrual Period: 2006 Other: Additional clinical information: Z00.00 Z12.4 Z01.419 Specimen/Source: ??Pap Test, Cervix/Endocervix, ThinPrep Imaging System with manual evaluation Document reviewed and electronically signed by: ? Ayla Sanders [facility](ASCP) ? Report ??Date: 02/22/2019 14:59 HPV with Pap Test ? Date Ordered: ? 02/22/2019 ? Status: ?? Signed Out ?Date Complete: ? 02/23/2019 ? By: ??System Interface ? Date Reported: ? 02/23/2019 ? Interpretation RESULT: Negative for HPV. No E6 or E7 mRNA is detected from HPV types 16,18,31,33,35, 39,45,51,52,56,58, 59,66, and 68 by machine set up operator paper goods mediated amplification. Comments Document reviewed and electronically signed by: ? System Interface ? Report date: 02/23/2019 By the signature above, the attending physician certifies that he/she has personally conducted a gross and/or microscopic examination of the described specimens and rendered or confirmed the above diagnosis. End of Report [facility] 02/17/2019 02/18/2019 Yulisa Farrell MD PATHOLOGY ORDERABLES [facility] [address] [place] [address] documented in this encounter Visit Diagnoses Not on filedocumented in this encounter Care Teams Assistant Buyer Relationship Specialty Start Date End Date Unknown, Provider, PCP - General 08/14/18 documented as of this encounter
--- OUTSIDE RECORDS SUMMARY | 2024-07-27 11:27 | XMS_ITS | Encounter Summary ---
Author Organization [facility] Address [address] [place] [address] Care Team Providers Care Dog Warden Name Role Phone Unknown, Provider Primary Care Provider Encounter Details Date Type Department Care Team (Late st Contact Info) Description 01/09/2022 Documentation Visit [facility] Endoscopy [address] [place], [place] [phone] Jd Tinoco MD [address] [place] [address] [address] [place] [address] Social History Tobacco Use Types Packs/Day Years Used Date Smoking Tobacco: Never Assessed Interpersonal Safety Answer Date Record ed Physically Hurt Never 06/19/2020 Verbally Threaten Not on file 06/19/2020 Sex and Gender Information Value Date Recorded Sex Assigned at Not on file Gender Identity Not on file Sexual Orientation Not on file documented as of this encounter Progress Notes * Jd Tinoco MD - 01/09/2022 0843 EST Gastroenterology & Hepatology Consult Note DATE:01/09/2022 Elvia Agee was kindly referred for evaluation of abdominal pain. Requesting Physician: No att. providers found Donna Farrell MD HPI: 61 y.o.female with history kindly provided by [facility]. There are no records in [employer] [facility] [employer]. Records kindly faxed by [facility]. The patient was recently treated for an episode of acute diverticulitis uneventfully with oral antibiotic therapy with normalization of bowel movements. The patient however is continuing to have left greater than right lower quadrant abdominal discomfort. C section; cholecystectomy 08/13/2018 Colonoscopy: 2011 and 04/13/2019 both documenting moderate diverticulosis sigmoid colon osteopenia Anxiety and depression under treatment. History of osteoporosis and Lyme disease. The patient denies any recent history of fevers, chills, appetite loss, weight loss, blood in stools, change in bowel habits, constipation, diarrhea, heartburn, hematemesis, jaundice, melena, nausea/vomiting or swallowing difficulty/pain. ROS: Full review of systems was negative except as detailed above. No past medical history on file. No past surgical history on file. MEDICATION LIST: No current outpatient medications on file prior to visit. No current facility-administered medications on file prior to visit. Not on File Social History Socioeconomic History ??? Marital status: Spouse name: Not on file ??? Number of children: Not on file ??? Years of education: Not on file ??? Highest education level: Not on file Occupational History ??? Not on file Tobacco Use ??? Smoking status: Not on file Substance and Sexual Activity ??? Alcohol use: Not on file ??? Drug use: Not on file ??? Sexual activity: Not on file Other Topics Concern ??? Not on file Social History Narrative ??? Not on file Social Determinants of Health Financial Resource Strain: ??? Difficulty of Paying Living Expenses: Not on file Food Insecurity: ??? Worried About Running Out of Food in the Last Year: Not on file ??? Ran Out of Food in the Last Year: Not on file Transportation Needs: ??? Lack of Transportation (Medical): Not on file ??? Lack of Transportation (Non-Medical): Not on file Physical Activity: ??? Days of Exercise per Week: Not on file ??? Minutes of Exercise per Session: Not on file Stress: ??? Feeling of Stress : Not on file Social Connections: ??? Frequency of Communication with Friends and Family: Not on file ??? Frequency of Social Gatherings with Friends and Family: Not on file ??? Attends Yarsani Services: Not on file ??? Active Member of Clubs or Organizations: Not on file ??? Attends Club or Organization Meetings: Not on file ??? Marital Status: Not on file No family history on file. Colon cancer paternal aunt PE: There were no vitals filed for this visit. Gen: Skin: Warm. Dry. No rashes or lesions HEENT: Anicteric Sclera Pulm: Clear to auscultation Card: Regular rhythm, No murmurs, rubs, or gallops Abd: Normoactive bowel sounds. Soft. Non-distended. no hepatomegaly, no splenomegaly.reproducible left lower quadrant tenderness with normal palpation of sigmoid colon. Rectal: not performed. Ext: No edema Neuro: Alert and oriented, grossly nonfocal. Laboratory/Imaging/Procedures: Data reviewed. Pertinent results are as follows: WBC 3.92; hematocrit 44.7; platelet 286; LFTs normal 10/23/[address] scan:sigmoid a ridiculous service with no evidence for diverticulitis No results found for: WBC, HGB, HCT, MCV, PLT No results found for: AST, ALT 07/2021 Left lower quadrant pain, tenderness on self-examination. No fever, no laboratory, no CT scan. Empiric antibiotic therapy with two antibiotics. 08/2021 recurrent identical symptoms WBC 3.92; hematocrit 44.7; platelet 26,000; LFTs normal; no antibiotics prescribed. CT scan ordered in response to this episode performed 10/23/21 normal except for presence of diverticulosis. 11/2021 recurrent symptoms the patient was considerably worse in terms of self- examination, tenderness, and also described that she could not roll over in bed. No antibiotics administered. Impression: 61 y.o. female with established chronic abdominal pain differential includes irritable bowel syndrome (diverticulosis as a presumptive marker); painful diverticulosis; post cholecystectomy syndrome;anxiety/depression. Plan:trial high-fiber diet, brand, supplementation, soluble fiber supplementation, Bentyl at bedtime Discussed colonoscopy as next step, patient will contact us regarding symptoms.. I have spent a total of 20 minutes with chart preparation, 40 minutes encounter meeting with the patient,and documentation/coordinating care as described in the above note. Jd Tinoco MD documented in this encounter Plan of Treatment Not on file documented as of this encounter Visit Diagnoses Not on filedocumented in this encounter Care Teams Dog Warden Relationship Specialty Start Date End Date Unknown, Provider, PCP - General 08/14/18 documented as of this encounter
--- OUTSIDE RECORDS SUMMARY | 2024-07-27 11:27 | XMS_ITS | Encounter Summary ---
Author Organization [facility] Address [address] [place] [address] Care Team Providers Care Legal Document Specialist Name Role Phone Unknown, Provider Primary Care Provider [phone] Encounter Details Date Type Department Care Team (Late st Contact Info) Description 06/25/2024 Orders Only [facility] Gastroenterology [address] [place] [address] Gregor Crawford MD [address] [place] [phone] Social History Tobacco Use Types Packs/Day Years Used Date Smoking Tobacco: Never Assessed Interpersonal Safety Answer Date Record ed Physically Hurt Never 06/19/2020 Verbally Threaten Not on file 06/19/2020 Sex and Gender Information Value Date Recorded Sex Assigned at Not on file Gender Identity Not on file Sexual Orientation Not on file documented as of this encounter Ordered Prescriptions Prescription Sig Dispensed Refills Start Date End Da te dicyclomine (BENTYL) 10 mg capsule Take 1 Capsule by mouth at bedtime. 90 Capsule 3 06/25/2024 documented in this encounter Plan of Treatment Not on file documented as of this encounter Visit Diagnoses Not on filedocumented in this encounter Discontinued Medications Medication Sig Discontinue Reason Start Date End Da te dicyclomine (BENTYL) 10 mg capsule Take 1 Capsule by mouth at bedtime. Reorder 07/02/2023 06/25/2024 documented as of this encounter Care Teams Legal Document Specialist Relationship Specialty Start Date End Date Unknown, ProviderMD PCP - General 08/14/18 documented as of this encounter
--- OUTSIDE RECORDS SUMMARY | 2024-07-27 11:27 | XMS_ITS | Clinical Summary ---
Author Organization [facility] Address [address] [place] [address] Care Team Providers Care Diesel Technician Name Role Phone Unknown, Provider Primary Care Provider Medications Medication Sig Dispensed Refills Start Date End Date Status dicyclomine (BENTYL) 10 mg capsule Take 1 Capsule by mouth at bedtime. 90 Capsule 3 06/25/2024 Active Encounters Date Type Department Care Team Description 06/25/2024 Orders Only [facility] Gastroenterology [address] [place] [id number] Gregor Crawford MD from Last 3 Months Social History Tobacco Use Types Packs/Day Years Used Date Smoking Tobacco: Never Assessed Interpersonal Safety Answer Date Record ed Physically Hurt Never 06/19/2020 Verbally Threaten Not on file 06/19/2020 Sex and Gender Information Value Date Recorded Sex Assigned at Not on file Gender Identity Not on file Sexual Orientation Not on file Plan of Treatment Health Maintenance Due Date Last Done Comments Hepatitis C Screen 1960 RSV Immunization ( o r 60+ Years) (1 - 1-dose 60+ series) 2020 COVID-19 Vaccine ( season) 2023 Care Teams Diesel Technician Relationship Specialty Start Date End Date Unknown, Provider, PCP - General 08/14/18
--- OUTSIDE RECORDS SUMMARY | 2024-07-27 11:27 | XMS_ITS | Encounter Summary ---
Author Organization [facility] Address [address] [place] [address] Care Team Providers Care Guidance Consultant Name Role Phone Unknown, Provider Primary Care Provider Encounter Details Date Type Department Care Team (Late st Contact Info) Description 07/02/2023 Orders Only [facility] Endoscopy [address] [place] [address] Lawson Rendon MD [facility] [address] [place] [address] Social History Tobacco Use Types [...] by mouth at bedtime. 90 Capsule 3 07/02/2023 06/25/2024 documented in this encounter Plan of Treatment Not on file documented as of this encounter Visit Diagnoses Not on filedocumented in this encounter Care Teams Guidance Consultant Relationship Specialty Start Date End Date Unknown, Provider, PCP - General 08/14/18 documented as of this encounter
--- NOTE | 2024-07-27 11:28 | W.ED.GENAD ---
Discharge Plan Disposition Patient Disposition: Home Condition: Stable Discharge Details Chief Complaint: GenMedical Clinical Impression: Syncope, COVID Primary Care Provider: Donna Farrell ED Provider: Wagner Ferreira Home Meds and New Rx's Prescriptions: New Paxlovid 300 mg (150 mg x 2)-100 mg tablets,dose pack See Rx Instructions .ROUTE .COMPLEX Qty: 30 0RF Rx Instructions: take TWO 150 mg tablets of nirmatrelvir with ONE 100 mg tablet of ritonavir twice daily for 5 days Continued ibuprofen 200 mg tablet 200 mg PO QID PRN cholecalciferol (vitamin D3) 2,000 unit capsule 1,000 unit PO DAILY PRN citalopram 20 mg Tablet 20 mg PO HS calcium carb and citrate-vitD3 [Citracal-D3 Slow Release] 600 mg calcium- 500 unit Tablet Extended Release 1 tab PO DAILY dicyclomine 10 mg capsule 10 mg PO DAILY risedronate 150 mg tablet 150 mg PO .Qmonthly Patient Comments: TAKE 1 TABLET BY MOUTH IN THE MORNING ONCE A MONTH, FOR OSTEOPOROSIS. Discharge Instructions Additional Instructions: Your lab work and x-ray were reassuring. Make sure you drink plenty of fluids to stay hydrated Follow-up with your primary care provider still having symptoms within a week If you feel more ill or have new symptoms such as difficulty breathing or chest pain return to the emergency department for reevaluation HPI General Mode of arrival: EMS. Date/Time Provider Initiated Documentation: 07/27/24 11:18. Limitations to Documentation: no limitations. Information obtained by: patient. History of Present Illness 64 year old F presents to the emergency department with the chief complaint of nausea, weak, described as moderate, Patient started experiencing this hour(s) (5) and it has been constant. No relieving factors improve symptom(s), No exacerbating factors reported . Patient notes cough, fever/chills, syncope and weakness; denies chest pain and shortness of breath. Patient did receive the following treatments prior to arrival, none Related Data Home Medications ?Medication ?Instructions ?Recorded ?Confirmed citalopram 20 mg tablet 20 mg PO HS 08/11/18 07/27/24 calcium carb,cit ER 600 mg-vit D3 1 tab PO DAILY 08/12/18 07/27/24 12.5 mcg (500 unit) tablet,ext.rel (Citracal-D3 Slow Release) ibuprofen 200 mg tablet 200 mg PO QID PRN 03/11/19 07/27/24 cholecalciferol (vitamin D3) 50 1,000 unit PO DAILY PRN 03/12/19 07/27/24 mcg (2,000 unit) capsule dicyclomine 10 mg capsule 10 mg PO DAILY IBF 07/27/24 07/27/24 nirmatrelvir 300 mg (150 mg See Rx Instructions PO .COMPLEX 07/27/24 x2)-ritonavir 100 mg tablet,dose #30 dose pk pack (Paxlovid) risedronate 150 mg tablet 150 mg PO .Qmonthly 07/27/24 07/27/24 Previous Rx's ?Medication ?Instructions ?Recorded nirmatrelvir 300 mg (150 mg See Rx Instructions PO .COMPLEX 07/27/24 x2)-ritonavir 100 mg tablet,dose #30 dose pk pack (Paxlovid) Allergies Allergy/AdvReac Type Severity Reaction Status Date / Time No Known Allergies Allergy Verified 04/13/19 07:28 General Stated Complaint: GenMedical ROCKY: 3 Review of Systems All systems reviewed & are unremarkable except as noted in HPI and below Constitutional Constitutional: Reports chills, Reports fatigue and Reports weakness Cardiovascular Cardiovascular: Denies chest pain Respiratory Respiratory: Reports cough Gastrointestinal Gastrointestinal: Reports nausea and Reports vomiting Genitourinary Genitourinary: Denies dysuria Integumentary/Breasts Skin/Breast: Denies rash Neurologic Neurologic: Reports weakness Endocrine Endocrine: Reports fatigue Exam Const General: no acute distress Orientation: alert [facility] Head: normal to inspection Ears: external ears normal General nose exam: external nose normal Mouth: moist mucous membranes Eyes General: appearance normal, both eyes and all related structures Neck Neck: normal visual inspection Resp Effort & Inspection: normal respiratory effort and able to speak in complete sentences Auscultation: clear to auscultation bilaterally Cardio Jugular venous pressure: no JVD Rate: regular rate Heart Sounds: no murmurs GI Palpation: soft and nontender Skin General skin exam: no rashes or lesions noted Neuro General: patient alert and patient oriented x3 Extrem General: normal to inspection Psych Mental Status: mental status grossly normal Course Vital Signs Vital signs: Vital Signs Temperature 36.6 C 07/27/24 11:12 Pulse 58 L 07/27/24 11:12 Respiratory Rate 18 07/27/24 11:12 Blood Pressure 146/63 H 07/27/24 11:12 Pulse Oximetry 100 07/27/24 11:12 Temperature 36.6 C 07/27/24 11:18 Temperature Source Oral 07/27/24 11:18 Pulse 58 L 07/27/24 11:18 Respiratory Rate 18 07/27/24 11:18 Respiratory Effort Normal, Non-Labored 07/27/24 11:19 Blood Pressure 146/63 H 07/27/24 11:18 Blood Pressure Position Sitting 07/27/24 11:18 Pulse Oximetry 100 07/27/24 11:18 Oxygen Delivery Method Room Air 07/27/24 11:18 Oxygen Flow Rate 0 07/27/24 11:18 Medical Decision Making 64-year-old female with a history of osteoporosis comes in after syncopal event. She says on Friday she started feeling unwell including fatigue and dry cough and runny nose. She tested positive for COVID over the weekend and starting yesterday started having some nausea and this morning started vomiting. She did have some abdominal cramping earlier but that is resolved. She says she has had 2 bouts of diarrhea and on the second 1 while she was on the toilet she became lightheaded and had a brief syncope. Did not hit her head or left other trauma. She denies ever having any chest pain or shortness of breath. She is currently is feels fatigued and dehydrated. She denies any difficulty breathing, she did have a fever 2 days ago but none since. She is alert and oriented on arrival and appears fatigued. She has clear lung sounds, no DVT, no leg swelling or calf tenderness. Soft nontender abdomen. Suspect she has dehydration in the setting of having COVID, will check CBC, CMP, procalcitonin and chest x-ray and treat her nausea and dehydration with fluids and droperidol. She has no tachycardia or hypoxia no evidence of DVT so doubt PE and do not feel CTA indicated. no chest pain/pressure so doubt acs but will check troponin Labs and x-ray unremarkable. Delta troponin negative. Patient feels significantly better eating and drinking and has no symptoms. Given reassuring workup feel she can be discharged and will initiate Paxlovid. She will follow-up with her PCP and return precautions given Differential Diagnosis Differential Diagnosis: Dehydration, COVID, electrolyte abnormality Imaging Data Radiologic Study: Attestation: I personally reviewed and interpreted this imaging study as follows: Imaging: X-Ray Radiologist's impression: No acute findings Lab Data Lab results reviewed: Yes I reviewed the patient's lab results. ECG Data Attestation: I personally reviewed and interpreted this ECG (s) as follows: Prior ECG tracings: not available for review Interpretation: Sinus rhythm, rate of 60 CT 197 no STEMI Quality:SDOH Health Related Social Needs: No Data to Display PFSH All Active Problems (Updated 07/27/24 @ 14:27 by Wagner Ferreira MD) COVID (Acute) Syncope (Chronic) Sensorineural hearing loss of combined sites, bilateral (Acute) S/P colonoscopy (Acute) Diverticulosis (Acute) Encounter for colorectal cancer screening (Acute) Depression with anxiety (Chronic) Medical History (Updated 07/27/24 @ 14:27 by Wagner Ferreira MD) Diverticulosis Osteoporosis Lyme disease Anxiety and depression Menopause Low back pain Vitamin D deficiency Osteopenia after menopause Surgical History (Updated 04/13/19 @ 09:53 by Debbie Alvarenga MD) H/O [facility] [place] , Dr Ramy Madrigal, scattered diverticuli, rectal polyp negative for adenomatous change, rec'd repeat in five years. mg History of delivery Family History (Updated 04/06/19 @ 13:33 by Pari Mann RN) Paternal Aunt Cancer Social History (Updated 03/12/19 @ 13:01 by ANDRA Vela) Smoking/Tobacco Use Status: Former Tobacco Use Quit Date: 12/03/92 Smoking risk assessment performed?: Yes Alcohol Intake: current Alcohol Intake frequency: 0-2 drinks per day Alcohol type: wine Drug use: Never Substance use type: does not use Do you feel safe at home: Yes Do you feel safe in your relationship?: Yes PAWSS Have you Been Recently Intoxicated or Drunk Within the Last 30 days?: No Have you Ever Experienced Previous Episodes of Alcohol Withdrawal?: No Have you ever Experienced Withdrawal Seizures?: No Have you ever Experienced Delirium Tremens(DT)s?: No Have you ever undergone Alcohol Rehabilitation Treatment (i.e, inpt ot outpatient treatment programs)?: No Have you ever Experienced Blackouts?: No Have you ever Combined Alcohol with other Downers within the last 90 days?: No Have you ever Combined Alcohol with any other Substance of Abuse during the last 90 days?: No Positive Blood Alcohol level on Presentation? [PCS.BAL]: No Evidence of Increased Autonomic Activity (i.e. HR>120, tremor, sweating, agitation, nausea)?: No Result: 0
[2024-07-27] MEDS: Normal Saline 1,000 ML 1000 ML IV (11:45)
[2024-07-27] MEDS: Droperidol 5 MG/2 ML VIAL 1.25 MG IVP (11:45)
[2024-07-27 11:48] LABS: Abs Immature Grans 0.02 10^3/uL (0.0-0.06); Absolute Basophil Count 0.03 10^3/uL (0.0-0.2); Absolute Eosinophil Count 0.11 10^3/uL (0.0-0.7); Absolute Lymphocyte Count 0.82 10^3/uL (1.2-3.4); Absolute Monocyte Count 0.57 10^3/uL (0.1-0.8); BE (Venous) 2 mmol/L (-2-3); Basophils % 0.7 %; Eosinophils % 2.5 %; HCO3 (Venous) 26 mmol/L (23-28); HCT 41.8 % (36.0-46.0); HGB 14.2 g/dL (11.2-15.7); Immature Grans % 0.4 %; Lymphocytes % 18.4 %; MCH 31.4 pg (27.0-33.0); MCV 93 fL (80-95); MPV 8.3 fL (8.0-11.0); Monocytes % 12.8 %; Neutrophils % 65.2 %; O2 Sat (Venous) 44 %; Platelet Count 173 10^3/uL (130-400); RBC 4.52 10^6/uL (3.93-5.22); RDW 11.9 % (11.7-14.6); RDW-SD 40.6 fL; TCO2 (Venous) 23 mmol/L (24-29); WBC 4.45 10^3/uL (4.4-10.8); pCO2 (Venous) 37 mmHg (41-51); pH (Venous) 7.46 (7.31-7.41); pO2 (Venous) 22 mmHg
[2024-07-27 12:13] LABS: Influenza A PCR Negative (Negative); Influenza B PCR Negative (Negative); RSV PCR Negative (Negative)
[2024-07-27 12:15] LABS: COVID-19 PCR Positive (Negative); Source Nasopharynx
[2024-07-27 12:22] LABS: ALT 22 U/L (14-59); AST 17 U/L (15-37); Albumin 3.7 g/dL (3.4-5.0); Alkaline Phosphatase 73 U/L (46-116); Anion Gap 8.8 mmol/L (3-11); BUN 16 mg/dL (7-18); Bilirubin, Total 0.51 mg/dL (0.2-1.0); CO2 26.2 mmol/L (21.0-32.0); CREATININE 0.7 mg/dL (0.55-1.02); Calcium 9.6 mg/dL (8.5-10.1); Chloride 105 mmol/L (98-107); Estimated GFR 96.52 (mL/min/1.73m2); Glucose 137 mg/dL (74-106); Magnesium 2.1 mg/dL (1.8-2.4); Potassium 4.1 mmol/L (3.5-5.1); Sodium 140 mmol/L (136-145); TSH (W/Ref FT4) 4.08 uIU/mL (0.36-3.74); Total Protein 7.4 g/dL (6.4-8.2); Troponin I 5 ng/L (4-51)
[2024-07-27 12:35] LABS: Procalcitonin < 0.1 ng/mL
[2024-07-27 12:39] LABS: FREE T4 0.97 ng/dL (0.76-1.46)
--- NOTE | 2024-07-27 13:26 | DI.RAD_ITS ---
Exam(s) XR PORTABLE CHEST AP EXAM: XR PORTABLE CHEST AP CLINICAL HISTORY: ?pneumonia, covid positive TECHNIQUE: 2D digital imaging was performed. COMPARISON: No exams were available for comparison FINDINGS: Moderate leads overlie the chest. LUNGS: Emphysematous and fibrotic changes. No focal infiltrate.. No pleural abnormality seen. HEART: Normal size. AORTA: Normal diameter. BONES: Unremarkable for age. Soft tissues: Unremarkable. IMPRESSION: No acute findings. DATA REPOSITORY: RADIATION DOSE DELIVERED:
[2024-07-27 13:56] LABS: Troponin I < 4 ng/L (4-51)
== END 2024-07-27 14:46 | disposition home or self-care (01) ==
PROVIDERS: Emergency Provider Emergency Medicine; PCP Family Medicine
DX: R55 Syncope and collapse (principal); U07.1 COVID-19; Z87.891 Personal history of nicotine dependence
CPT/HCPCS: 36415; 80053; 82805; 84145; 87637; 93005; 96361; 96374; 99285; 71045; 83735; 84439; 84443; 84484; 85025; 93010; 99284; J1790

== ENCOUNTER 2025-01-10 08:15 | Outpatient (REF) | payer BC, SELFPAY ==
[2025-01-10 16:03] LABS: ALT 22 U/L (14-59); AST 18 U/L (15-37); Alkaline Phosphatase 96 U/L (46-116); Anion Gap 4.3 mmol/L (3-11); BUN 19 mg/dL (7-18); Bilirubin, Total 0.54 mg/dL (0.2-1.0); CO2 30.7 mmol/L (21.0-32.0); CREATININE 0.7 mg/dL (0.55-1.02); Calcium 9.7 mg/dL (8.5-10.1); Calculated LDL 113 mg/dL (<100); Chloride 107 mmol/L (98-107); Cholesterol 226 mg/dL (<200); Estimated GFR 96.52 (mL/min/1.73m2); Glucose 108 mg/dL (74-106); HDL Cholesterol 99 mg/dL (40-60); Sodium 142 mmol/L (136-145); Total Protein 6.9 g/dL (6.4-8.2); Triglyceride 74 mg/dL (<150)
== END 2025-01-10 08:16 | disposition home or self-care (01) ==
LOC: NCHCN 08:15
PROVIDERS: PCP Family Medicine; Visit Provider Family Medicine
DX: Z00.00 Encounter for general adult medical examination without abnormal findings (principal)
CPT/HCPCS: 80053; 80061

== ENCOUNTER 2025-03-09 02:36 | Outpatient (CLI) | payer BC, SELFPAY ==
--- NOTE | 2025-03-09 | DI.MAMMO_ITS ---
Exam(s) MAMMO SCREENING EXAM: MAMMO SCREENING CLINICAL HISTORY: Mammo Screening, Z00.00,ADULT HEALTH EXAMINATION TECHNIQUE: Bilateral full field digital CC and MLO mammographic images were obtained with 3D tomosyn thesis and utilizing computer aided detection (CAD). COMPARISON: Available for comparison. FINDINGS: Masses/Architectural Distortion: There is a 7 mm well-circumscribed nodule in the central right breas t on the craniocaudad view which is more prominent compared to the prior examination. This area shou ld be further evaluated with a spot compression view. Microcalcifications: No suspicious pleomorphic-type are seen. Skin Thickening/Nipple Retraction: None. IMPRESSION: 1. 7 mm nodule in the central right breast on the craniocaudad view. 2. Spot compression views requested for further evaluation. Ultrasound may be indicated at that time . BI-RADS Category 0 - Incomplete: Need additional imaging evaluation Breast Density - Category C - Heterogeneously dense Breast density category C or D implies that the patient has dense breast tissue. Dense breast tissue is very common and is not abnormal but dense breast tissue can make it harder to find cancer on a ma mmogram. Also, dense breast tissue may increase their breast cancer risk. This information about the result of the mammogram report was provided to the patient to raise their awareness. Use this report when you speak with the patient about their risks for breast cancer, which includes their family hist ory. At that time, you may recommend for more screening tests (Ultrasound or MRI) as they might be us eful based on their risk. A negative radiographic report should not delay biopsy if a dominant or clinically suspicious mass is present. Up to ten percent of cancers are not identified on mammography. A negative report may reinforce clinical impression. Adenosis and dense breasts may obscure an underlying neoplasm. False positive reports average 6 to 10%. Patient will receive a letter notifying them of these results.
== END 2025-03-09 02:56 ==
LOC: DI 02:36
PROVIDERS: PCP Family Medicine; Visit Provider Family Medicine
DX: Z12.31 Encounter for screening mammogram for malignant neoplasm of breast (principal); R92.333 Mammographic heterogeneous density, bilateral breasts
CPT/HCPCS: 77063; 77067

== ENCOUNTER 2025-03-16 00:45 | Outpatient (CLI) | payer BC, SELFPAY ==
--- NOTE | 2025-03-16 | DI.US_ITS ---
Exam(s) MG MAMMO SCREEN CALL BACK UNI US BREAST RT LIMITED EXAM: MG MAMMO SCREEN CALL BACK UNI CLINICAL HISTORY: R92.8 ABN mammo, 7mm nodule central RT breast on craniocauded view. TECHNIQUE: Spot compression digital Mammography views of the right breasts with Tomosynthesis follo wed by right breast ultrasound. COMPARISON: MG Screening Bilat Mammo from 01/30/2017 MG Screening Bilat Mammo from 03/10/2018 MG MG MAMMO SCREENING from 09/06/2021 MG MG MAMMO SCREEN CALL BACK UNI from 09/14/2021 MG MG MAMMO DIAGNOSTIC UNI from 03/18/2022 MG MG MAMMO SCREENING from 10/29/2022 MG MG MAMMO SCREENING from 11/03/2023 MG MG MAMMO SCREENING from 03/09/2025 FINDINGS: RIGHT BREAST: Mammography/Tomosynthesis: Masses/Architectural Distortion: None seen. Microcalcifictions: No suspicious pleomorphic-type are seen. Skin Thickening/Nipple Retraction: None. Right breast US: Echotexture: Normal appearance of the glandular tissue. Shadowing: No suspicious foci. Cyst: None. Solid lesions: None seen. Ductal dilation: None. IMPRESSION: 1. Right breast: No evidence of malignancy is noted. 2. Left breast: No evidence of malignancy is noted. 3. Unless there is more urgent need, follow-up screening mammography is recommended, as per [place] [employer] guidelines. 4. The findings were discussed with the patient on the date of the examination. BI-RADS Category 1 - Negative Breast Density - Category C - Heterogeneously dense A mammogram that demonstrates density of C or D indicates the patient's breast tissue is dense. Dense breast tissue is very common and is not abnormal, but dense breast tissue can make it harder to find cancer on a mammogram. Also, dense breast tissue may increase their breast cancer risk. This informa tion about the result of the mammogram report was provided to the patient to raise their awareness. U se this report when you speak with the patient about their risks for breast cancer, which includes th eir family history. At that time, you may recommend for more screening tests (Ultrasound or MRI) as t hey might be useful based on their risk. A negative radiographic report should not delay biopsy if a dominant or clinically suspicious mass is present. Up to ten percent of cancers are not identified on mammography. A negative report may reinforce clinical impression. Adenosis and dense breasts may obscure an underlying neoplasm. False positive reports average 6 to 10%. Patient will receive a letter notifying them of these results.
== END 2025-03-16 01:05 ==
LOC: DI 00:45
PROVIDERS: PCP Family Medicine; Visit Provider Family Medicine
DX: Z12.31 Encounter for screening mammogram for malignant neoplasm of breast (principal); R92.8 Other abnormal and inconclusive findings on diagnostic imaging of breast; R92.333 Mammographic heterogeneous density, bilateral breasts
CPT/HCPCS: 76642; 77063; 77067

== ENCOUNTER 2025-08-19 11:20 | Emergency (ER) | payer BC, SELFPAY ==
--- NOTE | 2025-08-19 11:30 | DI.CT_ITS ---
Exam(s) CT ABDOMEN PELVIS W EXAM: CT ABDOMEN PELVIS W CLINICAL HISTORY: LLQ abd Pain. TECHNIQUE: Imaging Protocol: Axial computed tomography images with coronal and sagittal reformatted images were created and reviewed CONTRAST MATERIAL: Intravenous: Omnipaque-350 75cc Oral: None COMPARISON: CT CT ABDOMEN PELVIS W from 10/23/2021 FINDINGS: VISUALIZED LUNG BASES: No nodules nor pleural effusions evident. ABDOMEN: There is no ascites. LIVER: There are no new focal hepatic lesions evident. Small benign subcortical cyst in the inferior right hepatic lobe again noted. There are no dilated intrahepatic ducts. GALLBLADDER/BILIARY: The gallbladder is again noted be surgically absent. CBD diameter size commensurate with post cholecystectomy status. PANCREAS: No evidence of pancreatic mass nor dilatation of the pancreatic duct. SPLEEN: Spleen is not enlarged. No obvious intrasplenic lesions. Splenic and portal veins are patent. ADRENALS: There are no significant adrenal masses. KIDNEYS:No cysts evident. No solid renal masses. No calculi nor hydronephrosis.. ABDOMINAL AORTA: Abdominal aorta is not enlarged. LYMPH NODES:There is no retroperitoneal nor paraaortic adenopathy. ABDOMINAL WALL: No evidence of significant anterior abdominal wall nor inguinal hernia. GI: There is diverticulosis of the descending-left colon. There is an area of significant inflammation below the junction of the descending-left colon and sigmoid consistent with acute diverticulitis. There is possible tiny micro perforation. Phlegmonous stage. There is some mild streaking and STIR luminal fluid in this region. No formed abscess. PELVIS: GI: No evidence of appendicitis. LYMPH NODES: There is no intrapelvic nor inguinal adenopathy. REPRODUCTIVE: Uterus and adnexal regions unremarkable. There is tiny amount of free fluid in the dependent aspect of the pelvis. I suspect that this is coming from the upper sigmoid inflammatory findings. URINARY BLADDER: No calculi nor obvious masses evident OSSEOUS: No fractures and no significant osseous lesions. No compression fractures. Schmorl's node invagination in the superior endplate of L2 vertebral body noted. No generalized height loss of the superior endplate. IMPRESSION: 1. The main acute findings are in the lower left descending and upper sigmoid colon. Findings of diverticulosis with superimposed acute diverticulitis. There is surrounding streaking and phlegmonous changes but no formed abscess at this time. However, judged at high risk for developing an abscess. 2. Prior cholecystectomy. CBD diameter is commensurate with prior cholecystectomy status. Report called by myself to ER provider on 08/19/2025 at 2:30 p.m. RADIATION DOSE DELIVERED: 343.89mGy.cm Total DLP DATA REPOSITORY: All CT scans at this facility are submitted to the National Radiology Data Registry (NRDR) Dose Index Registry (DIR) with the [employer] (A[employer]). RADIATION OPTIMIZATION: All CT scans at this facility use at least one of these dose optimization techniques: automated exposure control; mA and/or kV adjustment per patient size (includes targeted exams where dose is matched to clinical indication); or iterative reconstruction.
[2025-08-19 11:32] VITALS: BP 113/76; PULSE 89; RESP 18; TEMP 37.2; O2SAT 98
[2025-08-19 11:37] VITALS: BP 113/76; PULSE 89; RESP 18; TEMP 37.2; O2SAT 98
[2025-08-19 12:06] LABS: Abs Immature Grans 0.01 10^3/uL (0.0-0.06); HCT 41.2 % (36.0-46.0); HGB 14.1 g/dL (11.2-15.7); Immature Grans % 0.1 %; MCH 31.5 pg (27.0-33.0); MCHC 34.2 % (32.0-36.0); MCV 92 fL (80-95); MPV 7.8 fL (8.0-11.0); Platelet Count 237 10^3/uL (130-400); RBC 4.48 10^6/uL (3.93-5.22); RDW 12.1 % (11.7-14.6); RDW-SD 40.4 fL; WBC 7.93 10^3/uL (4.4-10.8)
--- NOTE | 2025-08-19 12:15 | W.ED.GENAD ---
Discharge Plan Disposition Patient Disposition: Home Condition: Stable Discharge Details Clinical Impression: Diverticulitis Primary Care Provider: Donna Farrell ED Provider: Lucila Odell Home Meds and New Rx's Prescriptions: New ciprofloxacin HCl 500 mg tablet 500 mg PO BID 10 Days Qty: 20 0RF Rx Instructions: Take one tablet by mouth twice daily x 10 days metronidazole 500 mg tablet 500 mg PO BID 10 Days Qty: 20 0RF No Action ibuprofen 200 mg tablet 200 mg PO QID PRN cholecalciferol (vitamin D3) 2,000 unit capsule 1,000 unit PO DAILY PRN citalopram 20 mg Tablet 20 mg PO HS calcium carb, citrate-vit D3 [Citracal-D3 Slow Release] 600 mg calcium- 500 unit Tablet Extended Release 1 tab PO DAILY dicyclomine 10 mg capsule 10 mg PO DAILY risedronate 150 mg tablet 150 mg PO .Qmonthly Patient Comments: TAKE 1 TABLET BY MOUTH IN THE MORNING ONCE A MONTH, FOR OSTEOPOROSIS. Discharge Instructions Instructions: Clear Liquid Diet, Diverticulitis (DC) Additional Instructions: CT shows moderate diverticulitis on the left descending colon and upper sigmoid colon. No abscess at this time. Please take the antibiotics with yogurt or a probiotic as directed twice daily for the next 10 days. Clear liquid diet for the next 48 to 72 hours after that practice a bland diet. Stay away from anything fried fatty spicy or dairy. Stay away from any seeds or berries. Follow up with primary care provider in 3-5 days. Return to ED sooner if any worsening abdominal pain, fever, vomiting unable to keep the medications down severe worsening pain or concerns. Thank you for allowing us to care for you today. Please take Tylenol or Ibuprofen with food every 4-6 hours as needed for pain and swelling. Referrals: Donna Farrell [Primary Care Provider, Medicine] - 5 days Referral Note: ER follow-up call for an appointment. Clinical Impression: Diverticulitis HPI General Mode of arrival: ambulatory. Date/Time Provider Initiated Documentation: 08/19/25 11:36. Limitations to Documentation: no limitations. Information obtained by: patient, RN notes reviewed and old records reviewed. HPI Narrative: 65-year-old female presents to the ER with a chief complaint of left lower quadrant abdominal pain which began yesterday. She reports that she has intermittent crampy pains that radiate to her right lower quadrant. She does have a history of possible diverticulosis which has never officially been diagnosed. She also states that when she passes gas that she has mucus bloody discharge which she has been seen by her PCP for this in the past. She did take Tylenol around midnight prior to arrival. And between 8 and 9 AM. Reports mild nausea no vomiting. Does have a history of cholecystectomy, . Related Data Home Medications ?Medication ?Instructions ?Recorded ?Confirmed citalopram 20 mg tablet 20 mg PO HS 08/11/18 08/19/25 calcium ER 600 mg (as carb,cit)-D3 1 tab PO DAILY 08/12/18 08/19/25 12.5 mcg (500 unit) tablet, ext.rel (Citracal-D3 Slow Release) ibuprofen 200 mg tablet 200 mg PO QID PRN 03/11/19 08/19/25 cholecalciferol (vitamin D3) 50 1,000 unit PO DAILY PRN 03/12/19 08/19/25 mcg (2,000 unit) capsule dicyclomine 10 mg capsule 10 mg PO DAILY IBF 07/27/24 08/19/25 risedronate 150 mg tablet 150 mg PO .Qmonthly 07/27/24 08/19/25 ciprofloxacin HCl 500 mg tablet 500 mg PO BID Diverticulitis 10 08/19/25 days #20 tabs metronidazole 500 mg tablet 500 mg PO BID 10 days #20 tabs 08/19/25 Previous Rx's ?Medication ?Instructions ?Recorded ciprofloxacin HCl 500 mg tablet 500 mg PO BID Diverticulitis 10 08/19/25 days #20 tabs metronidazole 500 mg tablet 500 mg PO BID 10 days #20 tabs 08/19/25 Allergies Allergy/AdvReac Type Severity Reaction Status Date / Time Sulfa (Sulfonamide AdvReac Mild Agitation Verified 08/19/25 11:37 Antibiotics) General Stated Complaint: Abd Prob ROCKY: 3 Review of Systems Gastrointestinal Gastrointestinal: Reports as per HPI, Reports abdominal pain, Denies hematochezia, Reports change in stool character, Denies coffee ground emesis, Reports cramping, Reports nausea and Denies vomiting Exam Narrative Exam Narrative: Constitutional: Alert and oriented x3. Appears stated age. Normal body habitus. Head: Normocephalic, no trauma. Eyes: Pupils PERRL, Red reflex noted, EOM's intact. Eyelids symmetrical without lesions, discharge, or swelling. ENT: Bilateral TM's WNL, External ear normal to inspection, no mastoid TTP, swelling, or erythema, Nasal turbinates WNL, no nasal discharge. Normal dentition, Posterior pharynx WNL, no exudate. Chest: RRR, Normal S1, S2, distal pulses intact. Resp: Lungs clear to auscultation bilaterally, no wheezes, rales, or rhonchi. Abdomen: Soft, non-distended, Normoactive bowel sounds all 4 quads. Pinpoint tenderness to palpation left upper and lower quadrant. Musculoskeletal: Normal gait, Moves all 4 extremities without difficulty. Skin: No suspicious rashes or lesions. Capillary refill less than 2 sec. Neurologic: Cranial nerves II-XII intact. Alert and oriented x 3. Motor: No deficits noted. Hematologic/Lymphatic: No ecchymosis, no lymphadenopathy. Course Vital Signs Vital signs: Vital Signs Temperature 37.2 C 08/19/25 11:32 Pulse 89 08/19/25 11:32 Respiratory Rate 18 08/19/25 11:32 Blood Pressure 113/76 08/19/25 11:32 Pulse Oximetry 98 08/19/25 11:32 Temperature 37.2 C 08/19/25 11:37 Pulse 89 08/19/25 11:37 Respiratory Rate 18 08/19/25 11:37 Blood Pressure 113/76 08/19/25 11:37 Pulse Oximetry 98 08/19/25 11:37 Pain Level 5 08/19/25 11:37 Lab/Test Results Lab/Test Results: Laboratory Tests Range/Units 08/19/25 12:02 WBC (4.4-10.8) 10^3/uL 7.93 RBC (3.93-5.22) 10^6/uL 4.48 Hgb (11.2-15.7) g/dL 14.1 Hct (36.0-46.0) % 41.2 MCV (80-95) fL 92 MCH (27.0-33.0) pg 31.5 MCHC (32.0-36.0) % 34.2 RDW (11.7-14.6) % 12.1 Plt Count (130-400) 10^3/uL 237 MPV (8.0-11.0) fL 7.8 L Immature Gran % % 0.1 Neutrophils % % 72.7 Lymphocytes % % 15.4 Monocytes % % 9.7 Eosinophils % % 1.5 Basophils % % 0.6 Nucleated RBC % (0.0-0.3) % 0.0 Absolute Neutrophils (1.2-6.7) 10^3/uL 5.76 Absolute Lymphocytes (1.2-3.4) 10^3/uL 1.22 Absolute Monocytes (0.1-0.8) 10^3/uL 0.77 Absolute Eosinophils (0.0-0.7) 10^3/uL 0.12 Absolute Basophils (0.0-0.2) 10^3/uL 0.05 Sodium Cancelled Potassium Cancelled Chloride Cancelled Carbon Dioxide Cancelled Anion Gap Cancelled BUN Cancelled Creatinine Cancelled Est GFR (CKD-EPI 2020) Cancelled Glucose Cancelled Calcium Cancelled Magnesium Cancelled Total Bilirubin Cancelled AST Cancelled ALT Cancelled Alkaline Phosphatase Cancelled Total Protein Cancelled Albumin Cancelled Lipase Cancelled Medical Decision Making 65-year-old female presents to the ER with a chief complaint of left lower quadrant abdominal pain which began yesterday. She reports that she has intermittent crampy pains that radiate to her right lower quadrant. She does have a history of possible diverticulosis which has never officially been diagnosed. She also states that when she passes gas that she has mucus bloody discharge which she has been seen by her PCP for this in the past. She did take Tylenol around midnight prior to arrival. And between 8 and 9 AM. Reports mild nausea no vomiting. Does have a history of cholecystectomy, . Workup ordered including CT CMP lipase urinalysis and CT abdomen pelvis with IV contrast. No leukocytosis, CMP largely within normal limits, glucose 113, lipase 26, urinalysis shows trace ketones. CT shows diverticulitis with surrounding streaking however no formed abscess at this time. Will give Cipro and Flagyl and outpatient PO antibiotics trial. Patient has no vomiting at this time. Will discuss clear liquid diet strict return instructions. Discussed CT results with patient and home care follow-up care and diet restrictions. She verbalized understanding. All her questions were answered to the best my ability. I was able to go over the CT images with her, she verbalized understanding. This text was generated using [employer] system, please disregard any oddities of phrase or misspellings. Medical Records Medical records reviewed: Yes I reviewed the patient's medical records. Imaging Data Radiologic Study: Imaging: CT Scan Radiologist's impression: PELVIS: GI: No evidence of appendicitis. LYMPH NODES: There is no intrapelvic nor inguinal adenopathy. REPRODUCTIVE: Uterus and adnexal regions unremarkable. There is tiny amount of free fluid in the dependent aspect of the pelvis. I suspect that this is coming from the upper sigmoid inflammatory findings. URINARY BLADDER: No calculi nor obvious masses evident OSSEOUS: No fractures and no significant osseous lesions. No compression fractures. Schmorl's node invagination in the superior endplate of L2 vertebral body noted. No generalized height loss of the superior endplate. IMPRESSION: 1. The main acute findings are in the lower left descending and upper sigmoid colon. Findings of diverticulosis with superimposed acute diverticulitis. There is surrounding streaking and phlegmonous changes but no formed abscess at this time. However, judged at high risk for developing an abscess. 2. Prior cholecystectomy. CBD diameter is commensurate with prior cholecystectomy status. Lab Data Lab results reviewed: Yes I reviewed the patient's lab results. Labs: Laboratory Tests Range/Units 08/19/25 08/19/25 08/19/25 12:02 12:59 14:25 WBC (4.4-10.8) 10^3/uL 7.93 RBC (3.93-5.22) 10^6/uL 4.48 Hgb (11.2-15.7) g/dL 14.1 Hct (36.0-46.0) % 41.2 MCV (80-95) fL 92 MCH (27.0-33.0) pg 31.5 MCHC (32.0-36.0) % 34.2 RDW (11.7-14.6) % 12.1 Plt Count (130-400) 10^3/uL 237 MPV (8.0-11.0) fL 7.8 L Immature Gran % % 0.1 Neutrophils % % 72.7 Lymphocytes % % 15.4 Monocytes % % 9.7 Eosinophils % % 1.5 Basophils % % 0.6 Nucleated RBC % (0.0-0.3) % 0.0 Absolute Neutrophils (1.2-6.7) 10^3/uL 5.76 Absolute Lymphocytes (1.2-3.4) 10^3/uL 1.22 Absolute Monocytes (0.1-0.8) 10^3/uL 0.77 Absolute Eosinophils (0.0-0.7) 10^3/uL 0.12 Absolute Basophils (0.0-0.2) 10^3/uL 0.05 Sodium Cancelled 140 Potassium Cancelled 4.1 Chloride Cancelled 104 Carbon Dioxide Cancelled 28.9 Anion Gap Cancelled 7.1 BUN Cancelled 9 Creatinine Cancelled 0.7 Est GFR (CKD-EPI 2020) Cancelled 95.92 Glucose Cancelled 113 H Calcium Cancelled 9.1 Magnesium Cancelled 2.3 Total Bilirubin Cancelled 0.9 AST Cancelled 17 ALT Cancelled 24 Alkaline Phosphatase Cancelled 82 Total Protein Cancelled 6.8 Albumin Cancelled 3.6 Lipase Cancelled 26 Urine Color (Yellow) Yellow Urine Clarity (Clear) Clear Urine pH (5-8) 7.0 Ur Specific [place] (1.005-1.025) 1.010 Urine Protein (Neg-Trace) mg/dL Negative Urine Ketones (Negative) mg/dL Trace H Urine Blood (Negative) Negative Urine Nitrite (Negative) Negative Urine Bilirubin (Negative) Negative Urine Urobilinogen (Up to 0.2) mg/dL 0.2 Ur Leukocyte Esterase (Negative) Negative Urine Glucose (Negative) mg/dL Negative PFSH All Active Problems (Updated 08/19/25 @ 14:39 by Lucila Odell NP) Diverticulitis (Chronic) COVID (Acute) Sensorineural hearing loss of combined sites, bilateral (Acute) S/P colonoscopy (Acute) Diverticulosis (Acute) Encounter for colorectal cancer screening (Acute) Depression with anxiety (Chronic) Medical History (Updated 08/19/25 @ 14:39 by Lucila Odell NP) Diverticulosis Osteoporosis Lyme disease Anxiety and depression Menopause Low back pain Vitamin D deficiency Osteopenia after menopause Surgical History (Updated 04/13/19 @ 09:53 by Debbie Alvarenga MD) H/O colonoscopy colonoscopy, 08/13/2012, [facility], [place], [place], , Dr Ramy Madrigal, scattered diverticuli, rectal polyp negative for adenomatous change, rec'd repeat in five years. mg History of delivery Family History (Updated 05/21/19 @ 13:33 by Pari Mann RN) Paternal Aunt Cancer Social History (Updated 03/12/19 @ 13:01 by ANDRA Vela) Smoking/Tobacco Use Status: Former Tobacco Use Quit Date: 12/03/92 Smoking risk assessment performed?: Yes Alcohol Intake: current Alcohol Intake frequency: 0-2 drinks per day Alcohol type: wine Drug use: Never Substance use type: does not use Do you feel safe at home: Yes Do you feel safe in your relationship?: Yes PAWSS Have you Been Recently Intoxicated or Drunk Within the Last 30 days?: No Have you Ever Experienced Previous Episodes of Alcohol Withdrawal?: No Have you ever Experienced Withdrawal Seizures?: No Have you ever Experienced Delirium Tremens(DT)s?: No Have you ever undergone Alcohol Rehabilitation Treatment (i.e, inpt ot outpatient treatment programs)?: No Have you ever Experienced Blackouts?: No Have you ever Combined Alcohol with other Downers within the last 90 days?: No Have you ever Combined Alcohol with any other Substance of Abuse during the last 90 days?: No Positive Blood Alcohol level on Presentation? [PCS.BAL]: No Evidence of Increased Autonomic Activity (i.e. HR>120, tremor, sweating, agitation, nausea)?: No Result: 0
[2025-08-19 13:01] VITALS: BP 131/74; PULSE 70; O2SAT 99
[2025-08-19 13:22] LABS: ALT 24 U/L (14-59); AST 17 U/L (15-37); Albumin 3.6 g/dL (3.4-5.0); Alkaline Phosphatase 82 U/L (46-116); Anion Gap 7.1 mmol/L (3-11); BUN 9 mg/dL (7-18); Bilirubin, Total 0.9 mg/dL (0.2-1.0); CO2 28.9 mmol/L (21.0-32.0); Calcium 9.1 mg/dL (8.5-10.1); Chloride 104 mmol/L (98-107); Estimated GFR 95.92 (mL/min/1.73m2); Glucose 113 mg/dL (74-106); Lipase 26 U/L (<78); Magnesium 2.3 mg/dL (1.8-2.4); Potassium 4.1 mmol/L (3.5-5.1); Sodium 140 mmol/L (136-145); Total Protein 6.8 g/dL (6.4-8.2)
[2025-08-19] MEDS: Omnipaque 350 MG/ML 100 ML BTL IJ (13:59)
[2025-08-19] MEDS: Normal Saline - Diluent 50 ML VIAL IJ (14:00)
[2025-08-19 14:33] LABS: Glucose Negative (Negative)
[2025-08-19] MEDS: Ciprofloxacin 500 MG TAB PO (14:50)
[2025-08-19] MEDS: metroNIDAZOLE 500 MG TAB PO (14:50)
--- NOTE | 2025-08-22 17:16 | NUR.NOTE ---
Access chart to determine if a referral was done and completed. Nursing Note:
== END 2025-08-19 15:07 | disposition home or self-care (01) ==
PROVIDERS: Emergency Provider Registered Nurse Emergency; PCP Family Medicine
DX: K57.32 Diverticulitis of large intestine without perforation or abscess without bleeding (principal)
CPT/HCPCS: 99285; 99284; 80053; 83690; 74177; 81003; 83735; 85025; J3490